=== PATIENT | female | born 1965 | race Caucasian/White ===

== ENCOUNTER → 2020-06-21 | Outpatient (CLI) | payer BC ==
--- NOTE | 2020-06-21 12:27 | P.GSHP ---
History of Present Illness H&P Date: 06/21/20 Chief Complaint: abnormal left breast mammogram Ofelia is a 55 year old white female who had a mammographic abnormality noted in the left breast. She had a bilateral mammogram performed on 220 1. This revealed a new architectural distortion in the anterior upper left mediolateral oblique view. It appears to be in the midportion of the breast by tomography. Discrete correspondence in the craniocaudal view was not evident. Compression views were obtained. This area did appear to persist on the compression mediolateral oblique view. Ultrasound of the left breast was then performed. Ultrasound of the left breast revealed most likely benign findings BIRADS 3 stereotactic core biopsy of the left breast was recommended no discrete finding on ultrasound was noted to correlate with the mammographic change. Several small lymph nodes were noted in the left axillary region. These were not felt to be suspicious. She does not feel any lumps masses or nodules in either breast. She is not complaining of any nipple discharge or skin changes. She is not complaining of any trauma or infection in her breast. Caffeine:1 1/2 cups coffee/day/ green tea in afternoon nicotine: stopped 3 months ago, used to smoke 1/PPD for 5 years chocolate: weekly hormones: none Family History: father: colon cancer, prostate cancer paternal grandmother: ovarian cancer Hormonal History: menarche: 11 1/2 M2, breast fed:yes, age at first : 23 menopause: 49 hormones: none Surgical history: Ovarian cyst removed Tubal ligation Bilateral groin hernia Rhinoplasty Tonsillectomy Oral surgery with some teeth Cataract surgery double corneal transplant conization Medical History: Turetts syndrome double vision Social History: smoke: stopped alcohol: stopped Apr 2020, used to drink daily drugs: Occasional marijuana - Constitutional Constitutional: Denies chills, Denies fever - EENT Comment: double vision Eyes: bilateral as per HPI Ears: deny: decreased hearing, tinnitus Ears, nose, mouth and throat: Denies headache, Denies sore throat - Breasts Breasts: bilateral: as per HPI - Cardiovascular Cardiovascular: Denies chest pain, Denies shortness of breath - Respiratory Comment: former smoker - Gastrointestinal Gastrointestinal: Denies abdominal pain, Denies diarrhea, Denies nausea, Denies vomiting - Genitourinary (Female) Genitourinary: Denies dysuria, Denies hematuria - Menstruation Menstruation: Reports postmenopausal - Musculoskeletal Comment: arthritis, fibromyalgia - Integumentary Integumentary: Denies pruritus, Denies rash - Neurological Comment: osito Neurological: Denies numbness, Denies weakness - Psychiatric Psychiatric: Denies anxiety, Denies depression - Endocrine Endocrine: Denies fatigue, Denies weight change - Hematologic/Lymphatic Comment: none - Allergic/Immunologic Allergic/Immunologic: Reports as per HPI, Reports seasonal allergies Past Medical History Additional Past Medical History / Comment(s): Tourettes syndrome dx age 6. 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 Corneal transplant, bilat. Rhinoplasty,. cervical leep, ovarian cystectomy, hernia repair, dilatation and curettage x2. Additional Past Anesthesia/Blood Transfusion Reaction / Comment(s): Hard time waking up Past Psychological History: No Psychological Hx Reported Smoking Status: Former smoker Additional Past Alcohol Use History / Comment(s): quit smoking 2020 Past Drug Use History: Marijuana Additional Drug Use History / Comment(s): recreational marijuana for tourettes Medications and Allergies Home Medications Medication Instructions Recorded Confirmed Type Fluorometholone 0.1% Ophth Holley 1 drops RIGHT EYE DAILY 06/13/20 06/13/20 History [Fml] Prednisolone Sod pH/Bromfenac 1 drop BOTH EYES DAILY 06/13/20 06/13/20 History [Prednisolone pH 1%-Brom 0.075%] Allergies Allergy/AdvReac Type Severity Reaction Status Date / Time Beta-Blockers Allergy Anaphylaxis Verified 06/13/20 12:43 (Beta-Adrenergic Bloc acetaminophen [From Vicodin] AdvReac Unknown Verified 06/13/20 12:43 erythromycin base AdvReac Nausea & Verified 06/13/20 12:43 Vomiting hydrocodone [From Vicodin] AdvReac Unknown Verified 06/13/20 12:43 tetracycline AdvReac Unknown Verified 06/13/20 12:43 Surgical - Exam BMI 25 - General well developed, well nourished, no distress - Eyes normal ocular movement - ENT normal nares, no hearing loss - Neck no masses, trachea midline - Respiratory normal expansion, normal respiratory effort, clear to auscultation - Cardiovascular Rhythm: regular Heart Sounds: normal: S1, S2 - Abdomen Abdomen: soft - Integumentary normal turgor, skin tattoos over back - Neurologic no disoriented, no combative - Musculoskeletal normal gait - Psychiatric oriented to time, oriented to person, oriented to place, speech is normal, memory intact breast exam: BRA: 36DD inspection bilateral grade 3 ptosis palpation: right breast: Multi-positional examination fibrocystic changes, no dominant masses or nodules of concern Right axilla: No adenopathy of concern Left breast: Multi-positional exam increased fibroglandular tissue upper outer quadrant no discrete dominant masses or nodules of concern, fibrocystic changes Left axilla: No adenopathy of concern Results Mammogram was independently reviewed, the area of concern is not well seen on a 2-D view and therefore it is felt that it 3-D stereo biopsy is most appropriate. Assessment and Plan Assessment: Impression: 1. 3-D radiographic abnormality left breast for stereotactic core biopsy 2. Fibrocystic breast changes 3. Fibromyalgia 4. Double vision Plan: 1. Reschedule stereotactic core biopsy for [facility] 3-D machine 2. Discussed lifestyle modification decreasing caffeine intake patient has recently stopped smoking 3. follow up after biopsy CC: DR. Wing
== END ==
LOC: WWCWWP 11:50
PROVIDERS: ATTEND Surgery
DX: N60.11 Diffuse cystic mastopathy of right breast (principal); N60.12 Diffuse cystic mastopathy of left breast; M79.7 Fibromyalgia; H53.2 Diplopia; Z87.891 Personal history of nicotine dependence

== ENCOUNTER 2023-03-03 10:51 | Day surgery (SDC) | payer BC ==
[2023-02-23 15:41] VITALS: BMI 24.3
[~2023-03-03 10:51] MED LIST: ATROPINE OPHTH SOLN 1% 5ML BTL OPHTHALMIC PRN; BUPIVACAINE (PF) 0.5% 4.5 ML, HYALURONIDASE, HUMAN RECOMB 150 UNIT, LIDOCAINE 2% (PF) 9... IO PRN; LACTATED RINGERS 1,000 ML IV SCH; LIDOCAINE 1% (10MG/ML) FOR IV START INTRADERMA PRN; MOXIFLOXACIN HCL 0.5% DROPS 3 ML BTL OP PRN; TETRACAINE 0.5% OPHTH (PF) DROPS 4 ML BTL OP PRN
[2023-03-03] MEDS: CYCLOPENTOLATE 1% OPHTH SOLN 2 ML BTL OP PRN ×3 (11:14→11:26)
[2023-03-03] MEDS: PHENYLEPHRINE 2.5% OPHTH DRP 2ML OP PRN ×3 (11:17→11:29)
[2023-03-03 11:38] LABS: Glucose,Whole Blood 79 mg/dL (70-110)
[2023-03-03] MEDS ORDERED: ONDANSETRON 4 MG/2 ML VIAL ONE (11:45)
[2023-03-03] MEDS ORDERED: ONDANSETRON 4 MG/2 ML VIAL IVP ONE (11:46)
[2023-03-03] MEDS ORDERED: DEXAMETHASONE SOD PHOSPHATE 4 MG/ML 1 ML VIAL IVP ONE (11:48)
[2023-03-03] MEDS ORDERED: fentaNYL (PF) 50 MCG/ML 2 ML AMP ONE (12:15)
[2023-03-03] MEDS ORDERED: MIDAZOLAM 2 MG/2 ML VIAL ONE (12:15)
[2023-03-03] MEDS ORDERED: PROPOFOL 10 MG/ML 20 ML VIAL IV ONE (12:15)
[2023-03-03] MEDS ORDERED: LIDOCAINE 1% INJ 10MG/ML (20 ML MDV) ONE (12:15)
[2023-03-03] MEDS ORDERED: EPINEPHrine (PF) 0.3 ML in BALANCED SALT IRRIG SOLN COMB2 500 ML IRRIGATION ONE (12:40)
[2023-03-03] MEDS ORDERED: LIDOCAINE 1% (PF) 10MG/ML VIAL MISCELLANE ONE (12:40)
[2023-03-03] MEDS ORDERED: BALANCED SALT IRRIG SOLN COMB2 15 ML IRRIG.SOLN INTRAOCULA ONE (12:40)
[2023-03-03] MEDS ORDERED: HYALURONATE SODIUM INTRAOCULAR 1 EACH SYRINGE (12MG/ML) INTRAOCULA ONE (12:40)
[2023-03-03] MEDS ORDERED: TRYPAN BLUE 0.06% SYRINGE 0.5 ML SYRINGE INTRAOCULA ONE (12:44)
[2023-03-03] MEDS ORDERED: ACETYLCHOLINE CHLORIDE 10 MG/ML 2 ML KIT INTRAOCULA ONE (12:44)
--- NOTE | 2023-03-03 13:52 | P.OP ---
Date of Procedure: 03/03/23 Preoperative Diagnosis: NS & CS & endothelial failure Postoperative Diagnosis: same Procedure(s) Performed: PIOL & DMEK (triple procedure) OD Implants: [id number] 17.50 Anesthesia: MAC Surgeon: Chris Perry Pathology: none sent Condition: stable Disposition: same day Indications for Procedure: blurry vision & post PKP endothelial failure Operative Findings: no complications
[2023-03-03 14:13] VITALS: TEMP 97.8
[2023-03-03] MEDS ORDERED: KETOROLAC 15 MG/ML 1 ML VIAL ONE (15:10)
[2023-03-03 15:44] VITALS: BP 134/74; RESP 14
[2023-03-03 15:45] VITALS: PULSE 66
[2023-03-04] MEDS ORDERED: TIMOLOL 0.5% OPHTH DROPS 5 ML BTL OP PRN (06:00)
--- NOTE | 2023-03-04 08:01 | OP ---
OPERATIVE REPORT DATE OF SERVICE : 03/03/2023 PROCEDURE PERFORMED: A triple procedure of the right eye. PREOPERATIVE DIAGNOSES: Nuclear sclerosis, cortical sclerosis, and endothelial failure following penetrating keratoplasty. POSTOPERATIVE DIAGNOSES: Nuclear sclerosis, cortical sclerosis, and endothelial failure following penetrating keratoplasty. ANESTHESIA: General. ESTIMATED BLOOD LOSS: None. SPECIMEN TAKEN: Transport media as well as sample tissue submitted for microbiologic culture and sensitivity. 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 She is now requesting clearer vision with the following procedure. DESCRIPTION OF PROCEDURE: After obtaining the appropriate consent, the patient was brought to the operating room. There she was placed under cardiac monitoring, induced into general anesthesia and intubated. She was then prepped and draped in the usual sterile manner. She was approached from her right temporal side and at each of the diagonal quadrants, a paracentesis was placed at the corneal limbus. Amvisc was used in the anterior chamber to stabilize it. At the 9 o'clock position, a 2.5 mm keratome was used to create a self-sealing corneal flap incision. Through this opening, a cystotome was introduced to begin a continuous tear capsulorrhexis which was completed using the Utrata forceps. Hydrodissection and hydrodelineation of the lens were accomplished with balanced salt solution. Phacoemulsification of the lens utilizing phaco chop was accomplished in 10.97 seconds at 10.7% power. Additional Amvisc was then used to stabilize the capsular bag and MX [id number] 17.5 diopter posterior chamber intraocular lens was then inserted into the capsular bag without difficulty. The remaining viscoelastic was removed from in and around the intraocular lens as well as the anterior chamber. At this point, Miochol was instilled into the patient's eye to bring about pupillary miosis allowing for sufficient time for the medication affect. This was followed by Trypan Blue which was allowed to dwell in the anterior chamber for 3 minutes. This too was rinsed away with balanced salt solution. A small amount of Amvisc was then used to stabilize the anterior chamber and using a Morales Sinskey hook, the outline of the central area within the previous corneal transplant was scored and using a Descemet membrane stripper, the endothelium was then removed from the underside of the previous corneal transplant. The temporal incision was checked for sizing of the Velazquez tube, similar to the transport device used for the tissue. A small piece of Weck-Marylu sponge was placed on the patient's cornea and the light was turned off and attention was directed to the back table where the transplant tissue identified as [id number] cornea and Optisol GS, right, this was brought to the back table and the tissue as well as the introduction device was placed to the Bebo dish with balanced salt solution. A small syringe was placed on the correct opening and the tissue was checked for proper movement within the Velazquez tube it was transported in. This was then brought back to the patient's eye. The Weck-Marylu sponge was removed and the tissue was deposited within the anterior chamber ensuring that it stayed within the chamber of the eye. A single 10-0 nylon suture was used to secure the temporal incision in an X fashion, controlling the amount of fluid in the anterior chamber and the depth, the Descemet membrane was gently unscrolled using various corneal tapping techniques and was positioned centrally within the previous corneal transplant. A small amount of air was used to confirm placement and facilitated positioning against the cornea. Once this was confirmed, SF6 at 20% concentration was then injected through a 30-gauge needle into the anterior chamber of the eye to bully the tissue against the underside of the cornea for approximately 20 minutes. Once sufficient time had passed, the sulfur hexafluoride gas was reduced to approximately 50% and balanced salt solution was used to deepen the anterior chamber. At this stage, the patient received 1 drop of 0.5% timolol followed by 2 drops of moxifloxacin as well as 2 drops of 1% atropine. She was shielded. She was extubated within the operating room without any difficulties and was returned to phase 1 recovery from her general anesthesia. She remained supine for approximately the next hour and was once again then examined bedside with a slit lamp to confirm that the Descemet membrane was in proper position and that there was sufficient depth of the anterior chamber and the appropriate amount of gas remaining in the anterior chamber of the eye. At this stage, she was cleared for discharge. There were no difficulties encountered during the procedure or anesthesia, and she was discharged home in good condition. MMODL / IJN: [id number] /
== END 2023-03-03 15:56 | disposition home or self-care (01) ==
LOC: OR 10:51
PROVIDERS: ATTEND Ophthalmology
DX: T86.8411 Corneal transplant failure, right eye (principal); H25.11 Age-related nuclear cataract, right eye; Z88.1 Allergy status to other antibiotic agents; Z88.5 Allergy status to narcotic agent; Z88.6 Allergy status to analgesic agent; Z88.8 Allergy status to other drugs, medicaments and biological substances; Z88.9 Allergy status to unspecified drugs, medicaments and biological substances; Z79.899 Other long term (current) drug therapy; Z98.890 Other specified postprocedural states
CPT/HCPCS: 87070; 87205; 87075; 87102; 65730; 66984; V2785; C1780; J2250; J1100; J2405; J0171; J2001 ×2; J3010; J1885; J2704; 87116; 87206

== ENCOUNTER 2023-06-03 19:36 | Emergency (ER) | payer BC ==
--- NOTE | 2023-06-03 20:00 | ED ---
General Adult HPI - General Chief complaint: Head Injury Stated complaint: Fall-head injury Time Seen by Provider: 06/03/23 19:59 Source: patient Mode of arrival: ambulatory Limitations: no limitations - History of Present Illness Initial comments: 58-year-old female presenting with the chief complaint of fall. States that she tripped yesterday and fell forward onto the carpeted floor. She did hit her head. No LOC. No nausea or vomiting. No blood thinners. Sent from an urgent care for a CT. No other injuries at this time. No other complaints. - Related Data Home Medications Medication Instructions Recorded Confirmed Fluorometholone 0.1% Ophth Holley 1 drops RIGHT EYE DAILY 06/13/20 03/03/23 [Fml] Prednisolone Sod pH/Bromfenac 1 drop LEFT EYE DAILY 06/13/20 03/03/23 [Prednisolone pH 1%-Brom 0.075%] Levofloxacin [Levaquin] 750 mg PO DAILY 02/23/23 03/03/23 methylPREDNISolone [Medrol Dose 0 mg PO DIRECTED 02/23/23 03/03/23 Pack] Allergies Allergy/AdvReac Type Severity Reaction Status Date / Time azithromycin Allergy Nausea & Verified 06/03/23 19:53 Vomiting Beta-Blockers Allergy Anaphylaxis Verified 06/03/23 19:53 (Beta-Adrenergic Bloc acetaminophen [From Vicodin] AdvReac Unknown Verified 06/03/23 19:53 alprazolam [From Xanax] AdvReac HEADACHE Verified 06/03/23 19:53 erythromycin base AdvReac Nausea & Verified 06/03/23 19:53 Vomiting gabapentin AdvReac NERVE Verified 06/03/23 19:53 DAMAGE hydrocodone [From Vicodin] AdvReac INSOMNIA Verified 06/03/23 19:53 morphine AdvReac SEVERE Verified 06/03/23 19:53 HEADACHE oxycodone [From Percocet] AdvReac INSOMNIA Verified 06/03/23 19:53 tetracycline AdvReac HEADACHE Verified 06/03/23 19:53 vancomycin AdvReac Itching Verified 06/03/23 19:53 Review of Systems ROS Statement: Those systems with pertinent positive or pertinent negative responses have been documented in the HPI. ROS Other: All systems not noted in ROS Statement are negative. Past Medical History Past Medical History: Eye Disorder Additional Past Medical History / Comment(s): Tourettes syndrome dx age 6. CATARACTS. RECENT BOUT OF BRONCHITIS History of Any Multi-Drug Resistant Organisms: None Reported Past Surgical History: Hernia Repair, Joint Replacement, Tonsillectomy, Tubal Li gation Additional Past Surgical History / Comment(s): left eye cataract surgery. Corneal transplant bilat. Rhinoplasty,. cervical leep, ovarian cystectomy, hernia repair, dilatation and curettage x2. RT PERLA, KELOID INJECTIONS RT THIGH. right hip Additional Past Anesthesia/Blood Transfusion Reaction / Comment(s): Hard time waking up-ALSO MOM AND SON HAVE HARD TIME WAKING UP. HAD TO GET STERNAL RUB IN AUGUST 2022 AFTER 25 MINUTES OF TRYING TO COME OUT OF TWILIGHT SEDATION. Past Psychological History: No Psychological Hx Reported Smoking Status: Former smoker Past Alcohol Use History: None Reported Past Drug Use History: None Reported - Past Family History Mother Family Medical History: No Reported History General Exam - General Exam Comments Initial Comments: Visual Physical Exam Vital signs reviewed General: Well-appearing, nontoxic, no acute distress. Head: Normocephalic, atraumatic Eyes: PERRLA, EOMI ENT: Airway patent Chest: Nonlabored breathing Skin: No visual rash, normal skin tone Neuro: Alert and oriented 3 Musculoskeletal: No gross abnormalities Limitations: no limitations General appearance: alert, in no apparent distress Head exam: Present: atraumatic, normocephalic, other (No battles signs or raccoons eyes) Eye exam: Present: normal appearance Neck exam: Present: normal inspection Respiratory exam: Present: normal lung sounds bilaterally Cardiovascular Exam: Present: regular rate, normal rhythm GI/Abdominal exam: Present: soft Extremities exam: Present: normal inspection Neurological exam: Present: alert, oriented X3 Skin exam: Present: warm, dry Course Vital Signs 06/03/23 19:53 Temperature 98.8 F Pulse Rate 87 Respiratory 16 Rate Blood Pressure 179/92 O2 Sat by Pulse 99 Oximetry Medical Decision Making - Medical Decision Making Was pt. sent in by a medical professional or institution (, PA, [employer]IC, urgent care, hospital, or group home...) When possible be specific @ -Urgent Care Did you speak to anyone other than the patient for history (EMS, parent, family, police, friend...)? What history was obtained from this source @ -No Did you review nursing and triage notes (agree or disagree)? Why? @ -I reviewed and agree with nursing and triage notes Were old charts reviewed (outside hosp., previous admission, EMS record, old EKG, old radiological studies, urgent care reports/EKG's, group home records)? Report findings @ -No old charts were reviewed Differential Diagnosis (chest pain, altered mental status, abdominal pain women, abdominal pain men, vaginal bleeding, weakness, fever, dyspnea, syncope, headach e, dizziness, GI bleed, back pain, seizure, CVA, palpatations, mental health, musculoskeletal)? @ -Differential Headache: Migraine, tension, cluster, carbon monoxide, central venous thrombosis, pension karma temporal arteritis, acute closure glaucoma, intercranial hemorrhage, mastoiditis, sinusitis, head injury, this is not meant to be an all-inclusive list. EKG interpreted by me (3pts min.). @ -None X-rays interpreted by me (1pt min.). @ -None done CT interpreted by me (1pt min.). @ -CT brain and cervical spine interpreted by me shows no evidence of acute findings. U/S interpreted by me (1pt. min.). @ -None done What testing was considered but not performed or refused? (CT, X-rays, U/S, labs)? Why? @ -None What meds were considered but not given or refused? Why? @ -None Did you discuss the management of the patient with other professionals (professionals i.e. , PA, [employer]CH[employer]IC, lab, RT, psych nurse, child welfare social worker, welt rander, te acher, armored vehicle officer, rn case manager)? Give summary @ -No Was smoking cessation discussed for >3mins.? @ -No Was critical care preformed (if so, how long)? @ -No Were there social determinants of health that impacted care today? How? (Homelessness, low income, unemployed, alcoholism, drug addiction, transportation, low edu. Level, literacy, decrease access to med. care, correction, rehab)? @ -No Was there de-escalation of care discussed even if they declined (Discuss DNR or withdrawal of care, Hospice)? DNR status @ -No What co-morbidities impacted this encounter? (DM, HTN, Smoking, COPD, CAD, Cancer, CVA, ARF, Chemo, Hep., AIDS, mental health diagnosis, sleep apnea, morbid obesity)? @ -None Was patient admitted / discharged? Hospital course, mention meds given and rou te, prescriptions, significant lab abnormalities, going to OR and other pertinent info. @ -Discharge 58-year-old female from an urgent care secondary to mechanical fall last night where patient fell forward onto the carpeted floor, hitting her head. No LOC. No nausea or vomiting. No blood thinner use. CT brain and cervical spine showed no evidence of acute finding. No other injuries at this time. Patient discharged home in stable condition. Discussed return precautions with patient who verbalizes agreement. Undiagnosed new problem with uncertain prognosis? @ -No Drug Therapy requiring intensive monitoring for toxicity (Heparin, Nitro, Insulin, Cardizem)? @ -No Were any procedures done? @ -No Diagnosis/symptom? @ -S/p mechanical fall, head injury Acute, or Chronic, or Acute on Chronic? @ -Acute Uncomplicated (without systemic symptoms) or Complicated (systemic symptoms)? @ -Uncomplicated Side effects of treatment? @ -No Exacerbation, Progression, or Severe Exacerbation? @ -No Poses a threat to life or bodily function? How? (Chest pain, [place], [place], pneumonia, PE, COPD, DKA, ARF, appy, cholecystitis, CVA, Diverticulitis, Homicidal, Suicidal, threat to staff... and all critical care pts) @ -No Disposition Clinical Impression: Head injury Disposition: HOME SELF-CARE Condition: Good Additional Instructions: Please return to the Emergency Department if symptoms worsen or any other concerns. Please follow up with your PCP. Is patient prescribed a controlled substance at d/c from ED?: No Referrals: Terrell Wing MD [Primary Care Provider] - 1-2 days Time of Disposition: 22:20
[2023-06-03 20:25] VITALS: RESP 16
--- NOTE | 2023-06-03 21:09 | CT ---
EXAMINATION TYPE: CT brain gus wo con DATE OF EXAM: 06/03/2023 COMPARISON: None HISTORY: fall on thinners. history of parkinsons. CT DLP: 1385.8 mGycm, Automated exposure control for dose reduction was used. CONTRAST: None CT of the brain is performed utilizing 3 mm thick sections through the posterior fossa and 3 mm thick sections through the remaining calvarium. Study is performed within 24 hours of arrival to the hospital. No abnormal hyperdensity is present to suggest an acute intracranial hemorrhage. No mass lesion is evident. No acute infarcts are evident. Ventricles and sulci are appropriate for the patient age. Paranasal sinuses and mastoid air cells within the [id number] are clear. IMPRESSIONS: 1. No acute intracranial process. Follow-up MRI can be performed as clinically indicated. CT cervical spine. COMPARISON: None CT of the cervical spine is performed in the axial plane at 2 mm thick sections. Reconstructed image s in the coronal, and sagittal plane are reviewed on the computer. Anterior vertebral body spurring is present C4-C7. Large spurs are present C5 and C6. No posterior wa ll displacement is evident. Disc heights appear preserved. No acute fractures are evident. Vertebral body alignment is normal. Vertebral body heights are preserved. No spinal canal stenosis is evident. Right foraminal narrowing is present at C2-3. Right foraminal stenosis present C3-4. Old right 3 and 4 posterior rib fractures are noted. No pneumothorax is evident. IMPRESSION: 1. No acute osseous abnormality cervical spine. 2. Degenerative changes discussed above. 3. 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
[2023-06-03 22:54] VITALS: BP 130/84; PULSE 88; TEMP 98.4
== END 2023-06-03 22:49 | disposition home or self-care (01) ==
LOC: EC 19:36
DX: S09.90XA Unspecified injury of head, initial encounter (principal); Z87.891 Personal history of nicotine dependence; Z88.6 Allergy status to analgesic agent; Z88.5 Allergy status to narcotic agent; Z88.8 Allergy status to other drugs, medicaments and biological substances; W01.0XXA Fall on same level from slipping, tripping and stumbling without subsequent striking against object, initial encounter
CPT/HCPCS: 70450; 72125; 99283

== ENCOUNTER 2024-09-14 15:32 | Observation (INO) | payer BC ==
--- NOTE | 2024-09-14 16:35 | ED ---
Abdominal Pain HPI - General Chief Complaint: Abdominal Pain Stated Complaint: Abd Pain Time Seen by Provider: 09/14/24 15:35 Source: patient Mode of arrival: ambulatory Limitations: physical limitation - History of Present Illness Initial Comments: 59-year-old female with past medical history of keratoconus who presents to the emergency department reporting right lower quadrant pain. States that she had periumbilical pain which now goes down to her right lower quadrant which has been going on for the past couple of days. She also has a decreased appetite. No nausea or vomiting. She does admit to constipation. She denies any fevers. Has had previous hernia surgery. Patient is concerned for appendicitis. Grades her pain as 8 out of 10 but does not want anything for pain. No other alleviating, precipitating or modifying factors - Related Data Home Medications Medication Instructions Recorded Confirmed Fluorometholone 0.1% Ophth Holley 1 drops RIGHT EYE DAILY 06/13/20 03/03/23 [Fml] Prednisolone Sod pH/Bromfenac 1 drop LEFT EYE DAILY 06/13/20 03/03/23 [Prednisolone pH 1%-Brom 0.075%] Levofloxacin [Levaquin] 750 mg PO DAILY 02/23/23 03/03/23 methylPREDNISolone [Medrol Dose 0 mg PO DIRECTED 02/23/23 03/03/23 Pack] Allergies Allergy/AdvReac Type Severity Reaction Status Date / Time azithromycin Allergy Nausea & Verified 09/14/24 15:34 Vomiting Beta-Blockers Allergy Anaphylaxis Verified 09/14/24 15:34 (Beta-Adrenergic Bloc acetaminophen [From Vicodin] AdvReac Unknown Verified 09/14/24 15:34 alprazolam [From Xanax] AdvReac HEADACHE Verified 09/14/24 15:34 erythromycin base AdvReac Nausea & Verified 09/14/24 15:34 Vomiting gabapentin AdvReac NERVE Verified 09/14/24 15:34 DAMAGE hydrocodone [From Vicodin] AdvReac INSOMNIA Verified 09/14/24 15:34 morphine AdvReac SEVERE Verified 09/14/24 15:34 HEADACHE oxycodone [From Percocet] AdvReac INSOMNIA Verified 09/14/24 15:34 tetracycline AdvReac HEADACHE Verified 09/14/24 15:34 vancomycin AdvReac Itching Verified 09/14/24 15:34 Review of Systems ROS Statement: Those systems with pertinent positive or pertinent negative responses have been documented in the HPI. ROS Other: All systems not noted in ROS Statement are negative. Past Medical History Past Medical History: Eye Disorder Additional Past Medical History / Comment(s): Tourettes syndrome dx age 6. CATARACTS. RECENT BOUT OF BRONCHITIS History of Any Multi-Drug Resistant Organisms: None Reported Past Surgical History: Hernia Repair, Joint Replacement, Tonsillectomy, Tubal Ligation Additional Past Surgical History / Comment(s): left eye cataract surgery. Corneal transplant bilat. Rhinoplasty,. cervical leep, ovarian cystectomy, her thanh repair, dilatation and curettage x2. RT PERLA, KELOID INJECTIONS RT THIGH. right hip Additional Past Anesthesia/Blood Transfusion Reaction / Comment(s): Hard time waking up-ALSO MOM AND SON HAVE HARD TIME WAKING UP. HAD TO GET STERNAL RUB IN AUGUST 2022 AFTER 25 MINUTES OF TRYING TO COME OUT OF TWILIGHT SEDATION. Past Psychological History: No Psychological Hx Reported Smoking Status: Former smoker Past Alcohol Use History: None Reported Past Drug Use History: None Reported - Past Family History Mother Family Medical History: No Reported History General Exam Limitations: physical limitation General appearance: alert, in no apparent distress Head exam: Present: atraumatic, normocephalic, normal inspection Eye exam: Present: normal appearance, PERRL, EOMI. Absent: scleral icterus, conjunctival injection, periorbital swelling ENT exam: Present: normal exam, mucous membranes moist Neck exam: Present: normal inspection. Absent: tenderness, meningismus, lymphadenopathy Respiratory exam: Present: normal lung sounds bilaterally. Absent: respiratory distress, wheezes, rales, rhonchi, stridor Cardiovascular Exam: Present: regular rate, normal rhythm, normal heart sounds. Absent: systolic murmur, diastolic murmur, rubs, gallop, clicks GI/Abdominal exam: Present: soft, tenderness (Right lower quadrant), normal bowel sounds. Absent: distended, guarding, rebound, rigid Extremities exam: Present: normal inspection, full ROM, normal capillary refill. Absent: tenderness, pedal edema, joint swelling, calf tenderness Back exam: Present: normal inspection Neurological exam: Present: alert, oriented X3, CN II-XII intact Psychiatric exam: Present: normal affect, normal mood Skin exam: Present: warm, dry, intact, normal color. Absent: rash Course Vital Signs 09/14/24 09/14/24 15:34 22:20 Temperature 98.4 F 98.7 F Pulse Rate 80 80 Respiratory 16 16 Rate Blood Pressure 134/80 148/87 O2 Sat by Pulse 100 98 Oximetry Medical Decision Making - Lab Data Result diagrams: 09/14/24 16:35 09/14/24 16:35 Lab Results 09/14/24 09/14/24 09/14/24 Range/Units 16:35 16:35 16:35 WBC 8.92 (4.50-10.00) 10*3/uL RBC 4.00 L (4.10-5.20) 10*6/uL Hgb 13.2 (12.0-15.0) g/dL Hct 37.9 (37.2-46.3) % MCV 94.8 (80.0-97.0) fL MCH 33.0 H (27.0-32.0) pg MCHC 34.8 (32.0-37.0) g/dL Plt Count 309 (140-440) 10*3/uL MPV 9.7 (9.5-12.2) fL Immature Gran % (Auto) 0.1 % Neutrophils % 51.1 % Lymphocytes % 38.8 % Monocytes % 7.7 % Eosinophils % 1.6 % Basophils % 0.7 % Immature Gran # 0.01 (0.00-0.04) 10*3/uL Neutrophils # 4.56 (1.80-7.70) 10*3/uL Lymphocytes # 3.46 (0.90-5.00) 10*3/uL Monocytes # 0.69 (0.20-1.00) 10*3/uL Eosinophils # 0.14 (0.04-0.35) 10*3/uL Basophils # 0.06 (0.00-0.10) 10*3/uL Sodium 141 (137-145) mmol/L Potassium 5.1 (3.5-5.1) mmol/L Chloride 104 (98-107) mmol/L Carbon Dioxide 26 (22-30) mmol/L Anion Gap 11 mmol/L BUN 17 (7-17) mg/dL Creatinine 0.67 (0.52-1.04) mg/dL Est GFR (CKD-EPI)AfAm >90 (>60 ml/min/1.73 sqM) Est GFR (CKD-EPI)NonAf >90 (>60 ml/min/1.73 sqM) Glucose 91 (74-99) mg/dL Plasma Lactic Acid Red (0.7-2.0) mmol/L Calcium 10.3 H (8.4-10.2) mg/dL Total Bilirubin 0.7 (0.2-1.3) mg/dL AST 35 (14-36) U/L ALT 20 (4-34) U/L Alkaline Phosphatase 58 (38-126) U/L Total Protein 8.4 H (6.3-8.2) g/dL Albumin 5.3 H (3.5-5.0) g/dL Lipase 152 (23-300) U/L Urine Color Colorless Urine Appearance Clear (Clear) Urine pH 5.5 (5.0-8.0) Ur Specific [place] 1.004 (1.001-1.035) Urine Protein Negative (Negative) Urine Glucose (UA) Negative (Negative) Urine Ketones Negative (Negative) Urine Blood Negative (Negative) Urine Nitrite Negative (Negative) Urine Bilirubin Negative (Negative) Urine Urobilinogen <2.0 (<2.0) mg/dL Ur Leukocyte Esterase Negative (Negative) 09/14/24 Range/Units 16:35 WBC (4.50-10.00) 10*3/uL RBC (4.10-5.20) 10*6/uL Hgb (12.0-15.0) g/dL Hct (37.2-46.3) % MCV (80.0-97.0) fL MCH (27.0-32.0) pg MCHC (32.0-37.0) g/dL Plt Count (140-440) 10*3/uL MPV (9.5-12.2) fL Immature Gran % (Auto) % Neutrophils % % Lymphocytes % % Monocytes % % Eosinophils % % Basophils % % Immature Gran # (0.00-0.04) 10*3/uL Neutrophils # (1.80-7.70) 10*3/uL Lymphocytes # (0.90-5.00) 10*3/uL Monocytes # (0.20-1.00) 10*3/uL Eosinophils # (0.04-0.35) 10*3/uL Basophils # (0.00-0.10) 10*3/uL Sodium (137-145) mmol/L Potassium (3.5-5.1) mmol/L Chloride (98-107) mmol/L Carbon Dioxide (22-30) mmol/L Anion Gap mmol/L BUN (7-17) mg/dL Creatinine (0.52-1.04) mg/dL Est GFR (CKD-EPI)AfAm (>60 ml/min/1.73 sqM) Est GFR (CKD-EPI)NonAf (>60 ml/min/1.73 sqM) Glucose (74-99) mg/dL Plasma Lactic Acid Red 1.5 (0.7-2.0) mmol/L Calcium (8.4-10.2) mg/dL Total Bilirubin (0.2-1.3) mg/dL AST (14-36) U/L ALT (4-34) U/L Alkaline Phosphatase (38-126) U/L Total Protein (6.3-8.2) g/dL Albumin (3.5-5.0) g/dL Lipase (23-300) U/L Urine Color Urine Appearance (Clear) Urine pH (5.0-8.0) Ur Specific [place] (1.001-1.035) Urine Protein (Negative) Urine Glucose (UA) (Negative) Urine Ketones (Negative) Urine Blood (Negative) Urine Nitrite (Negative) Urine Bilirubin (Negative) Urine Urobilinogen (<2.0) mg/dL Ur Leukocyte Esterase (Negative) Disposition Clinical Impression: RLQ abdominal pain, Redundant colon Disposition: ADMITTED IP TO THIS [facility] Condition: Stable Is patient prescribed a controlled substance at d/c from ED?: No Referrals: Terrell Wing MD [Primary Care Provider] - 1-2 days Time of Disposition: 22:34 Decision to Admit Reason: Admit from EC Decision Date: 09/14/24 Decision Time: 22:34
[2024-09-14 16:59] LABS: Basophils # (A) 0.06 10*3/uL (0.00-0.10); Basophils % (A) 0.7 %; Eosinophils # (A) 0.14 10*3/uL (0.04-0.35); Eosinophils % (A) 1.6 %; HCT 37.9 % (37.2-46.3); HGB 13.2 g/dL (12.0-15.0); Lymphocytes # (A) 3.46 10*3/uL (0.90-5.00); Lymphocytes % (A) 38.8 %; MCHC 34.8 g/dL (32.0-37.0); MCV 94.8 fL (80.0-97.0); Mean Platelet Volume 9.7 fL (9.5-12.2); Monocytes # (A) 0.69 10*3/uL (0.20-1.00); Monocytes % (A) 7.7 %; Neutrophils # (A) 4.56 10*3/uL (1.80-7.70); Neutrophils % (A) 51.1 %; Platelet Count 309 10*3/uL (140-440); RDW 13.2 % (11.5-14.5); WBC 8.92 10*3/uL (4.50-10.00)
[2024-09-14 17:07] LABS: Appearance,Urine Clear (Clear); Bilirubin,Urine Negative (Negative); Blood,Urine Negative (Negative); Color,Urine Colorless; Glucose,Urine (UA) Negative (Negative); Ketones,Urine Negative (Negative); Leukocyte Esterase,Urine Negative (Negative); Nitrite,Urine Negative (Negative); PH, Urine 5.5 (5.0-8.0); Protein,Urine Negative (Negative); Specific Gravity,Urine 1.004 (1.001-1.035); Urobilinogen,Urine <2.0 mg/dL (<2.0)
[2024-09-14 17:15] LABS: ALT 20 U/L (4-34); African American GFR (CKD) >90 (>60 ml/min/1.73 sqM); Anion Gap 11 mmol/L; Blood Urea Nitrogen 17 mg/dL (7-17); Calcium 10.3 mg/dL (8.4-10.2); Carbon Dioxide 26 mmol/L (22-30); Chloride 104 mmol/L (98-107); Glucose 91 mg/dL (74-99); Lipase 152 U/L (23-300); Non-African American GFR(CKD) >90 (>60 ml/min/1.73 sqM); Sodium 141 mmol/L (137-145)
[2024-09-14 17:20] LABS: AST 35 U/L (14-36); Albumin 5.3 g/dL (3.5-5.0); Alkaline Phosphatase 58 U/L (38-126); Potassium 5.1 mmol/L (3.5-5.1); Total Bilirubin 0.7 mg/dL (0.2-1.3); Total Protein 8.4 g/dL (6.3-8.2)
[2024-09-14] MEDS: SODIUM CHLORIDE 0.9% 1,000 ML IV ONE (17:24)
--- NOTE | 2024-09-14 18:53 | CT ---
EXAMINATION TYPE: CT abdomen pelvis w con DATE OF EXAM: 09/14/2024 6:23 PM COMPARISON: None CLINICAL INDICATION: Female, 59 years old with history of abdominal pain; RLQ pain. TECHNIQUE: Axial CT abdomen pelvis w con;Sagittal and coronal reformats were created on a separate w orkstation. Contrast used:100 ml mL of Isovue 300 with IV Contrast, (none if empty) Oral contrast used: without Oral Contrast (none if empty) CT DLP: 588.3 mGycm, Automated exposure control for dose reduction was used. FINDINGS: LOWER CHEST: Unremarkable ABDOMEN LIVER: Unremarkable GALLBLADDER AND BILE DUCTS: Unremarkable. PANCREAS: Unremarkable. SPLEEN: Unremarkable. ADRENAL GLANDS: Unremarkable. KIDNEYS AND URETERS: No evidence of hydronephrosis or obstructing renal calculus. The ureters are unr emarkable. PELVIS BLADDER: No evidence for wall thickening or mass given limitations of exam. REPRODUCTIVE: Unremarkable. ABDOMEN & PELVIS STOMACH AND BOWEL: Redundant colon throughout the abdomen. Moderate to large amount stool throughout the colon. There is twisting of the cecum series 202 image 39 where the terminal ileum comes in. The appendix is visualized in this region: Normal. The appendix is normal. No evidence of bowel obstructi on. Scattered colonic diverticula. PERITONEUM/RETROPERITONEUM: No evidence of pneumoperitoneum or free fluid. VASCULATURE: No evidence of aortic aneurysm. MUSCULOSKELETAL: No acute osseous abnormalities, right hip arthroplasty limits evaluation the pelvis. Hardware appears intact. LYMPH NODES: No gross evidence for lymphadenopathy. SOFT TISSUE/ABDOMINAL WALL: Unremarkable IMPRESSION: 1. Redundant colon with twisting of the cecum medially. Correlate for cecal bascule. No other acute processes definitively visualized in the right lower quadrant. 2. The appendix is normal. 3. Poor visualization of the distal right ureter due to streak artifact. Few calcifications are like ly outside the ureter. There is no evidence for hydronephrosis. [facility], , 09/14/2024 6:50 PM
[2024-09-14] MEDS ORDERED: IOPAMIDOL CONTRAST (ORAL USE) VIAL PO PRN (19:39)
--- NOTE | 2024-09-14 22:08 | CT ---
EXAMINATION TYPE: CT abdomen pelvis wo con DATE OF EXAM: 09/14/2024 9:36 PM COMPARISON: CT abdomen pelvis most recent from same day CLINICAL INDICATION: Female, 59 years old with history of cecal twisting; Pt preesnts with umbical ab dominal pain radiates to the right lower quadrant, abnormal bowel movements. TECHNIQUE: Axial CT abdomen pelvis wo con;Sagittal and coronal reformats were created on a separate workstation. Contrast used: mL of , (none if empty) Oral contrast used: with Oral Contrast (none if empty) CT DLP: 395.5 mGycm, Automated exposure control for dose reduction was used. FINDINGS: LOWER CHEST: Unremarkable ABDOMEN LIVER: Unremarkable GALLBLADDER AND BILE DUCTS: Unremarkable. PANCREAS: Unremarkable. SPLEEN: Unremarkable. ADRENAL GLANDS: Unremarkable. KIDNEYS AND URETERS: No evidence of hydronephrosis or obstructing renal calculus. The ureters are unr emarkable. PELVIS BLADDER: Excreted IV contrast seen within the urinary bladder and the ureters. No evidence for wall t hickening or mass given limitations of exam. REPRODUCTIVE: Unremarkable. ABDOMEN & PELVIS STOMACH AND BOWEL: Redundant colon throughout the abdomen. Moderate to large amount stool throughout the colon. Oral contrast extends to the rectum. There remains twisting of the cecum medially where th e terminal ileum comes in no obvious obstruction identified no wall thickening is present.. The appen carole is visualized in this region. No evidence of bowel obstruction. Scattered colonic diverticula. PERITONEUM/RETROPERITONEUM: No evidence of pneumoperitoneum or free fluid. VASCULATURE: No evidence of aortic aneurysm. MUSCULOSKELETAL: No acute osseous abnormalities, right hip arthroplasty limits evaluation the pelvis. Hardware appears intact. Grade 1 anterolisthesis of L5 on S1 with bilateral spondylolysis LYMPH NODES: No gross evidence for lymphadenopathy. SOFT TISSUE/ABDOMINAL WALL: Unremarkable IMPRESSION: 1. Findings confirmed with redundant with twisting of the cecum medially. No evidence for obstructio n as contrast extends to the rectum. Findings may be of doubtful clinical significance. No other find ing to correlate patient's pain. 2. The appendix is normal. 3. The ureters are opacified, the distal right ureter is remains poorly visualized due to right hip arthroplasty streak. Few calcifications are likely outside the ureter. There is no evidence for hydro nephrosis. [facility], , 09/14/2024 10:05 PM
[2024-09-14] MEDS ORDERED: NALOXONE 0.4 MG/ML 1 ML VIAL IV PRN (22:39)
[2024-09-15] MEDS: SODIUM CHLORIDE 0.9% 1,000 ML IV SCH (00:08)
[2024-09-15 06:52] LABS: Basophils # (A) 0.07 10*3/uL (0.00-0.10); Eosinophils # (A) 0.22 10*3/uL (0.04-0.35); Eosinophils % (A) 3.2 %; HCT 35.2 % (37.2-46.3); HGB 12.1 g/dL (12.0-15.0); Lymphocytes # (A) 2.66 10*3/uL (0.90-5.00); Lymphocytes % (A) 38.3 %; MCH 32.4 pg (27.0-32.0); MCHC 34.4 g/dL (32.0-37.0); MCV 94.1 fL (80.0-97.0); Mean Platelet Volume 9.4 fL (9.5-12.2); Monocytes # (A) 0.57 10*3/uL (0.20-1.00); Monocytes % (A) 8.2 %; Neutrophils # (A) 3.41 10*3/uL (1.80-7.70); Neutrophils % (A) 49.2 %; Platelet Count 270 10*3/uL (140-440); RBC 3.74 10*6/uL (4.10-5.20); RDW 13.2 % (11.5-14.5); WBC 6.94 10*3/uL (4.50-10.00)
[2024-09-15 07:12] LABS: African American GFR (CKD) >90 (>60 ml/min/1.73 sqM); Anion Gap 7 mmol/L; Blood Urea Nitrogen 14 mg/dL (7-17); Calcium 9.7 mg/dL (8.4-10.2); Carbon Dioxide 25 mmol/L (22-30); Chloride 109 mmol/L (98-107); Glucose 97 mg/dL (74-99); Non-African American GFR(CKD) >90 (>60 ml/min/1.73 sqM); Potassium 4.5 mmol/L (3.5-5.1); Sodium 141 mmol/L (137-145)
[2024-09-15] MEDS: KETOROLAC 15 MG/ML 1 ML VIAL IVP PRN (09:42)
--- NOTE | 2024-09-15 11:37 | P.GSHP ---
History of Present Illness H&P Date: 09/15/24 CHIEF COMPLAINT: Abdominal pain HISTORY OF PRESENT ILLNESS: This is a 59-year-old female who presented with right lower quadrant abdominal pain. Patient reports that she has been dealing with diarrhea and constipation for the last several months. She reports early fullness after eating. She has been bloated. Reports a decreased appetite. She did have a small bowel movement last night after the CAT scan with contrast. But she feels that she is not fully emptying her bowels after she stools. She denies any blood in the stools. She describes the shape of the stools as small and notably looking. Her last colonoscopy was 3 years ago reported as normal. The colonoscopy prior to that had shown colon polyps. She had a CT scan abdomen pelvis with both IV and then another CAT scan with oral contrast they reported redundant colon with twisting of the cecum correlate for cecal bascule. Appendix was normal. Patient reports her pain is better after the pain medication. She has been admitted to surgical service. PAST MEDICAL HISTORY: Tourettes syndrome dx age 6. CATARACTS. RECENT BOUT OF BRONCHITIS PAST SURGICAL HISTORY: Hernia Repair, Joint Replacement, Tonsillectomy, Tubal Ligation,left eye cataract surgery. Corneal transplant bilat. Rhinoplasty,. cervical leep, ovarian cystectomy, hernia repair, dilatation and curettage x2. RT PERLA, KELOID INJECTIONS RT THIGH. right hip, MEDICATIONS: See below ALLERGIES: See below SOCIAL HISTORY: No illicit drug use. REVIEW OF SYSTEMS: CONSTITUTIONAL: Denies fever or chills. HEENT: Denies blurred vision, vision changes, or eye pain. Denies hemoptysis CARDIOVASCULAR: Denies chest pain or pressure. RESPIRATORY: No shortness of breath. GASTROINTESTINAL: See HPI for pertinent findings HEMATOLOGIC: Denies bleeding disorders. GENITOURINARY: Denies any blood in urine or increased urinary frequency. SKIN: Denies pruitis. Denies rash. PHYSICAL EXAM: VITAL SIGNS: Reviewed GENERAL: Well-developed in no acute distress. HEENT: No sclera icterus. Extraocular movements grossly intact. Moist buccal mucosa. Head is atraumatic, normocephalic. No nasal drainage. ABDOMEN: Soft. Nondistended. Tenderness palpation to the right lower quadrant. No rebound or guarding noted. NEUROLOGIC: Alert and oriented. Cranial nerves II through XII grossly intact. LABORATORY DATA: WBC 6.94 Hgb 12.1 platelets 370 Sodium is 141 potassium 4.5 creatinine 0.66 Lactic acid 1.5 IMAGING: CT scan abdomen pelvis reports redundant colon with twisting of the cecum medially. Correlate for cecal bascule. No other acute process. The appendix is normal. Poor visualization of the distal right ureter due to streak artifact. Few calcifications are likely outside the ureter. No hydronephrosis. CT scan with oral contrast confirms redundant with twisting cecum medially. No evidence for obstruction as contrast extends to the rectum. Appendix normal ASSESSMENT: 1. 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 Signing provider agrees with the documented findings, assessment, and plan of care. Past Medical History Past Medical History: Eye Disorder Additional Past Medical History / Comment(s): Tourettes syndrome dx age 6. CATARACTS. RECENT BOUT OF BRONCHITIS History of Any Multi-Drug Resistant Organisms: None Reported Past Surgical History: Hernia Repair, Joint Replacement, Tonsillectomy, Tubal Ligation Additional Past Surgical History / Comment(s): left eye cataract surgery. Corneal transplant bilat. Rhinoplasty,. cervical leep, ovarian cystectomy, hernia repair, dilatation and curettage x2. RT PERLA, KELOID INJECTIONS RT THIGH. right hip Additional Past Anesthesia/Blood Transfusion Reaction / Comment(s): Hard time waking up-ALSO MOM AND SON HAVE HARD TIME WAKING UP. HAD TO GET STERNAL RUB IN AUGUST 2022 AFTER 25 MINUTES OF TRYING TO COME OUT OF TWILIGHT SEDATION. Past Psychological History: No Psychological Hx Reported Smoking Status: Former smoker Past Alcohol Use History: None Reported Past Drug Use History: None Reported - Past Family History Mother Family Medical History: No Reported History Medications and Allergies Home Medications Medication Instructions Recorded Confirmed Type Prednisolone Sod pH/Bromfenac 1 drop BOTH EYES DAILY 06/13/20 09/15/24 History [Prednisolone pH 1%-Brom 0.075%] Allergies Allergy/AdvReac Type Severity Reaction Status Date / Time azithromycin Allergy Nausea & Verified 09/15/24 07:52 Vomiting Beta-Blockers Allergy Anaphylaxis Verified 09/15/24 07:52 (Beta-Adrenergic Bloc acetaminophen [From Vicodin] AdvReac no plain Verified 09/15/24 07:52 tylenol allergy alprazolam [From Xanax] AdvReac HEADACHE Verified 09/15/24 07:52 erythromycin base AdvReac Nausea & Verified 09/15/24 07:52 Vomiting gabapentin AdvReac NERVE Verified 09/15/24 07:52 DAMAGE hydrocodone [From Vicodin] AdvReac INSOMNIA Verified 09/15/24 07:52 morphine AdvReac SEVERE Verified 09/15/24 07:52 HEADACHE oxycodone [From Percocet] AdvReac INSOMNIA Verified 09/15/24 07:52 tetracycline AdvReac HEADACHE Verified 09/15/24 07:52 vancomycin AdvReac Itching Verified 09/15/24 07:52 Surgical - Exam Vital Signs Temp Pulse Resp BP Pulse Ox 98.4 F 80 16 134/80 100 09/14/24 15:34 09/14/24 15:34 09/14/24 15:34 09/14/24 15:34 09/14/24 15:34 Results - Labs 09/15/24 06:18 09/15/24 06:18 Abnormal Lab Results - Last 24 Hours (Table) 09/14/24 09/14/24 09/15/24 Range/Units 16:35 16:35 06:18 RBC 4.00 L 3.74 L (4.10-5.20) 10*6/uL Hct 35.2 L (37.2-46.3) % MCH 33.0 H 32.4 H (27.0-32.0) pg MPV 9.4 L (9.5-12.2) fL Chloride (98-107) mmol/L Calcium 10.3 H (8.4-10.2) mg/dL Total Protein 8.4 H (6.3-8.2) g/dL Albumin 5.3 H (3.5-5.0) g/dL 09/15/24 Range/Units 06:18 RBC (4.10-5.20) 10*6/uL Hct (37.2-46.3) % MCH (27.0-32.0) pg MPV (9.5-12.2) fL Chloride 109 H (98-107) mmol/L Calcium (8.4-10.2) mg/dL Total Protein (6.3-8.2) g/dL Albumin (3.5-5.0) g/dL Diabetes panel 09/14/24 09/15/24 Range/Units 16:35 06:18 Sodium 141 141 (137-145) mmol/L Potassium 5.1 4.5 (3.5-5.1) mmol/L Chloride 104 109 H (98-107) mmol/L Carbon Dioxide 26 25 (22-30) mmol/L BUN 17 14 (7-17) mg/dL Creatinine 0.67 0.66 (0.52-1.04) mg/dL Glucose 91 97 (74-99) mg/dL Calcium 10.3 H 9.7 (8.4-10.2) mg/dL AST 35 (14-36) U/L ALT 20 (4-34) U/L Alkaline Phosphatase 58 (38-126) U/L Total Protein 8.4 H (6.3-8.2) g/dL Albumin 5.3 H (3.5-5.0) g/dL Calcium panel 09/14/24 09/15/24 Range/Units 16:35 06:18 Calcium 10.3 H 9.7 (8.4-10.2) mg/dL Albumin 5.3 H (3.5-5.0) g/dL Pituitary panel 09/14/24 09/15/24 Range/Units 16:35 06:18 Sodium 141 141 (137-145) mmol/L Potassium 5.1 4.5 (3.5-5.1) mmol/L Chloride 104 109 H (98-107) mmol/L Carbon Dioxide 26 25 (22-30) mmol/L BUN 17 14 (7-17) mg/dL Creatinine 0.67 0.66 (0.52-1.04) mg/dL Glucose 91 97 (74-99) mg/dL Calcium 10.3 H 9.7 (8.4-10.2) mg/dL Adrenal panel 09/14/24 09/15/24 Range/Units 16:35 06:18 Sodium 141 141 (137-145) mmol/L Potassium 5.1 4.5 (3.5-5.1) mmol/L Chloride 104 109 H (98-107) mmol/L Carbon Dioxide 26 25 (22-30) mmol/L BUN 17 14 (7-17) mg/dL Creatinine 0.67 0.66 (0.52-1.04) mg/dL Glucose 91 97 (74-99) mg/dL Calcium 10.3 H 9.7 (8.4-10.2) mg/dL Total Bilirubin 0.7 (0.2-1.3) mg/dL AST 35 (14-36) U/L ALT 20 (4-34) U/L Alkaline Phosphatase 58 (38-126) U/L Total Protein 8.4 H (6.3-8.2) g/dL Albumin 5.3 H (3.5-5.0) g/dL
--- NOTE | 2024-09-15 11:42 | P.CONS ---
History of Present Illness - History of Present Illness 59-year-old female came in with right lower quadrant abdominal pain severe but m uch improved now. Patient has been having diarrhea and constipation for last few months patient feels fullness after eating. Patient also has decreased appetite denied any nausea vomiting. Patient had a CT scan of the abdomen which showed redundant colon with twisting of the cecum possibility of cecal bascule. General surgery was consulted. Patient will undergo colonoscopy today. REVIEW OF SYSTEMS: All other systems are negative except those mentioned in the HPI PHYSICAL EXAMINATION: GENERAL: The patient is alert and oriented x3, not in any acute distress. Well developed, well nourished. HEENT: Pupils are round and equally reacting to light. EOMI. No scleral icterus. No conjunctival pallor. Normocephalic, atraumatic. No pharyngeal erythema. No thyromegaly. CARDIOVASCULAR: S1 and S2 present. No murmurs, rubs, or gallops. PULMONARY: Chest is clear to auscultation, no wheezing or crackles. ABDOMEN: Soft, nontender, nondistended, normoactive bowel sounds. No palpable organomegaly. MUSCULOSKELETAL: No joint swelling or deformity. EXTREMITIES: No cyanosis, clubbing, or pedal edema. NEUROLOGICAL: Gross neurological examination did not reveal any focal deficits. SKIN: No rashes. 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 Continue with present pain management patient pain is fairly well-controlled at this time We will continue to follow the patient's no additional recommendations from medicine perspective DVT prophylaxis: As per primary service Past Medical History Past Medical History: Eye Disorder Additional Past Medical History / Comment(s): Tourettes syndrome dx age 6. CATARACTS. RECENT BOUT OF BRONCHITIS History of Any Multi-Drug Resistant Organisms: None Reported Past Surgical History: Hernia Repair, Joint Replacement, Tonsillectomy, Tubal Ligation Additional Past Surgical History / Comment(s): left eye cataract surgery. Corneal transplant bilat. Rhinoplasty,. cervical leep, ovarian cystectomy, hernia repair, dilatation and curettage x2. RT PERLA, KELOID INJECTIONS RT THIGH. right hip Additional Past Anesthesia/Blood Transfusion Reaction / Comm: Hard time waking up-ALSO MOM AND SON HAVE HARD TIME WAKING UP. HAD TO GET STERNAL RUB IN AUGUST 2022 AFTER 25 MINUTES OF TRYING TO COME OUT OF TWILIGHT SEDATION. Past Psychological History: No Psychological Hx Reported Smoking Status: Former smoker Past Alcohol Use History: None Reported Past Drug Use History: None Reported - Past Family History Mother Family Medical History: No Reported History Medications and Allergies Home Medications Medication Instructions Recorded Confirmed Type Prednisolone Sod pH/Bromfenac 1 drop BOTH EYES DAILY 06/13/20 09/15/24 History [Prednisolone pH 1%-Brom 0.075%] Allergies Allergy/AdvReac Type Severity Reaction Status Date / Time azithromycin Allergy Nausea & Verified 09/15/24 07:52 Vomiting Beta-Blockers Allergy Anaphylaxis Verified 09/15/24 07:52 (Beta-Adrenergic Bloc acetaminophen [From Vicodin] AdvReac no plain Verified 09/15/24 07:52 tylenol allergy alprazolam [From Xanax] AdvReac HEADACHE Verified 09/15/24 07:52 erythromycin base AdvReac Nausea & Verified 09/15/24 07:52 Vomiting gabapentin AdvReac NERVE Verified 09/15/24 07:52 DAMAGE hydrocodone [From Vicodin] AdvReac INSOMNIA Verified 09/15/24 07:52 morphine AdvReac SEVERE Verified 09/15/24 07:52 HEADACHE oxycodone [From Percocet] AdvReac INSOMNIA Verified 09/15/24 07:52 tetracycline AdvReac HEADACHE Verified 09/15/24 07:52 vancomycin AdvReac Itching Verified 09/15/24 07:52 Physical Exam Vitals: Vital Signs Temp Pulse Resp BP Pulse Ox 09/15/24 07:00 66 18 126/78 99 09/15/24 00:06 84 16 117/70 97 09/14/24 22:20 98.7 F 80 16 148/87 98 09/14/24 15:34 98.4 F 80 16 134/80 100 Intake and Output 09/14/24 09/15/24 09/15/24 22:59 06:59 14:59 Other: Weight 62.142 kg Results CBC & Chem 7: 09/15/24 06:18 09/15/24 06:18 Labs: Abnormal Lab Results - Last 24 Hours (Table) 09/14/24 09/14/24 09/15/24 Range/Units 16:35 16:35 06:18 RBC 4.00 L 3.74 L (4.10-5.20) 10*6/uL Hct 35.2 L (37.2-46.3) % MCH 33.0 H 32.4 H (27.0-32.0) pg MPV 9.4 L (9.5-12.2) fL Chloride (98-107) mmol/L Calcium 10.3 H (8.4-10.2) mg/dL Total Protein 8.4 H (6.3-8.2) g/dL Albumin 5.3 H (3.5-5.0) g/dL 09/15/24 Range/Units 06:18 RBC (4.10-5.20) 10*6/uL Hct (37.2-46.3) % MCH (27.0-32.0) pg MPV (9.5-12.2) fL Chloride 109 H (98-107) mmol/L Calcium (8.4-10.2) mg/dL Total Protein (6.3-8.2) g/dL Albumin (3.5-5.0) g/dL
[2024-09-15] MEDS: prednisoLONE ACETATE 1% OPHTH DROPS 5 ML BTL BOTH EYES SCH (13:48)
[2024-09-15] MEDS: KETOROLAC 0.5% OPHTH DROPS 5 ML BTL BOTH EYES SCH (13:48)
[2024-09-15] MEDS: MELATONIN 5 MG TABLET PO SCH (20:52)
[2024-09-16] MEDS: HYDROmorphone 1 MG/ML 1 ML SYRINGE IVP PRN (00:54)
[2024-09-16] MEDS: ONDANSETRON 4 MG/2 ML VIAL IVP PRN (01:48)
--- NOTE | 2024-09-16 07:14 | P.PN ---
Subjective Progress Note Date: 09/16/24 Patient has had complaints of some crampy abdominal pain. She had several episodes of vomiting last night. She is currently resting in bed comfortably. On exam vital signs appear stable. Abdomen is soft. History of cecal bascule. Patient will be observed. If she remains symptomatic she may need a right colectomy. No plans for surgery have made at this point. Objective - Vital Signs Vital signs: Vital Signs Temp 97.8 F 09/16/24 00:09 Pulse 79 09/16/24 00:09 Resp 16 09/16/24 00:09 BP 149/77 09/16/24 00:09 Pulse Ox 100 09/16/24 00:09 FiO2 Intake & Output 09/15/24 09/16/24 09/16/24 18:59 06:59 18:59 Weight 62.142 kg Other: Voiding Method Toilet Toilet # Voids 1 1 # Bowel Movements 0 - Labs CBC & Chem 7: 09/15/24 06:18 09/15/24 06:18
[2024-09-16] MEDS: ACETAMINOPHEN TAB 325 MG TAB PO PRN (13:55)
--- NOTE | 2024-09-16 15:56 | P.PN ---
Subjective 59-year-old female came in with right lower quadrant abdominal pain severe but much improved now. Patient has been having diarrhea and constipation for last few months patient feels fullness after eating. Patient also has decreased appe tite denied any nausea vomiting. Patient had a CT scan of the abdomen which showed redundant colon with twisting of the cecum possibility of cecal bascule. General surgery was consulted. Patient will undergo colonoscopy today. 09/16/2024 Patient continues to have abdominal pain patient did not tolerate opiates very well is tolerating Toradol and Tylenol very well patient has multiple side effec ts from opiates including constipation. Opiates were discontinued Toradol has been continued and Tylenol is being used for headache. The patient continues to have this abdominal pain will need a colectomy as per general surgery. REVIEW OF SYSTEMS: All other systems are negative except those mentioned in the HPI PHYSICAL EXAMINATION: GENERAL: The patient is alert and oriented x3, not in any acute distress. Well developed, well nourished. HEENT: Pupils are round and equally reacting to light. EOMI. No scleral icterus. No conjunctival pallor. Normocephalic, atraumatic. No pharyngeal erythema. No thyromegaly. CARDIOVASCULAR: S1 and S2 present. No murmurs, rubs, or gallops. PULMONARY: Chest is clear to auscultation, no wheezing or crackles. ABDOMEN: Soft, nontender, nondistended, normoactive bowel sounds. No palpable organomegaly. MUSCULOSKELETAL: No joint swelling or deformity. EXTREMITIES: No cyanosis, clubbing, or pedal edema. NEUROLOGICAL: Gross neurological examination did not reveal any focal deficits. SKIN: No rashes. 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 Continue with present pain management patient pain is fairly well-controlled at this time We will continue to follow the patient's no additional recommendations from medicine perspective DVT prophylaxis: As per primary service Objective - Vital Signs Vital signs: Vital Signs Temp 98.2 F 09/16/24 14:03 Pulse 87 09/16/24 14:03 Resp 17 09/16/24 14:03 BP 128/75 09/16/24 14:03 Pulse Ox 100 09/16/24 14:03 FiO2 Intake & Output 09/15/24 09/16/24 09/16/24 18:59 06:59 18:59 Weight 62.142 kg Other: Voiding Method Toilet Toilet Toilet # Voids 1 1 1 # Bowel Movements 0 - Labs CBC & Chem 7: 09/15/24 06:18 09/15/24 06:18
--- NOTE | 2024-09-17 09:49 | P.PN ---
Subjective Progress Note Date: 09/17/24 Patient feels slightly better. She states her right lower quadrant pain is improved. She has had a small bowel movement. Her nausea has improved as well. Objective - Vital Signs Vital signs: Vital Signs Temp 98.2 F 09/17/24 06:48 Pulse 71 09/17/24 06:48 Resp 18 09/17/24 06:48 BP 129/78 09/17/24 06:48 Pulse Ox 100 09/17/24 06:48 FiO2 Intake & Output 09/16/24 09/17/24 09/17/24 18:59 06:59 18:59 Intake Total 222 Balance 222 Weight 62.142 kg Intake: Oral 222 Other: Voiding Method Toilet Toilet Toilet # Voids 3 2 # Bowel Movements 1 1 - Labs CBC & Chem 7: 09/15/24 06:18 09/15/24 06:18 Assessment and Plan Plan: Patient will be scheduled for colonoscopy in the a.m.
[2024-09-17] MEDS: PEG 3350 (236 GM/BTL) + LYTES 4,000 ML BOTTLE PO ONE (13:08)
[2024-09-18 07:40] VITALS: BP 147/83; PULSE 59; RESP 17; TEMP 98.1
[2024-09-18 08:40] LABS: Basophils # (A) 0.05 10*3/uL (0.00-0.10); Basophils % (A) 1.2 %; Eosinophils # (A) 0.08 10*3/uL (0.04-0.35); Eosinophils % (A) 1.9 %; HCT 33.5 % (37.2-46.3); Lymphocytes # (A) 2.26 10*3/uL (0.90-5.00); Lymphocytes % (A) 52.3 %; MCH 31.3 pg (27.0-32.0); MCHC 32.8 g/dL (32.0-37.0); MCV 95.2 fL (80.0-97.0); Mean Platelet Volume 9.6 fL (9.5-12.2); Monocytes # (A) 0.63 10*3/uL (0.20-1.00); Monocytes % (A) 14.6 %; Platelet Count 264 10*3/uL (140-440); RBC 3.52 10*6/uL (4.10-5.20); RDW 13.2 % (11.5-14.5); WBC 4.32 10*3/uL (4.50-10.00)
[2024-09-18 08:52] LABS: African American GFR (CKD) >90 (>60 ml/min/1.73 sqM); Anion Gap 8 mmol/L; Blood Urea Nitrogen <2 mg/dL (7-17); Calcium 9.6 mg/dL (8.4-10.2); Carbon Dioxide 25 mmol/L (22-30); Chloride 109 mmol/L (98-107); Glucose 88 mg/dL (74-99); Non-African American GFR(CKD) >90 (>60 ml/min/1.73 sqM); Potassium 3.9 mmol/L (3.5-5.1); Sodium 142 mmol/L (137-145)
--- NOTE | 2024-09-18 11:04 | P.PN ---
Subjective Progress Note Date: 09/18/24 SURGICAL PROGRESS NOTE CHIEF COMPLAINT: Abdominal pain HISTORY OF PRESENT ILLNESS: Her pain is improving. She is scheduled for colonoscopy today. She reports her stools are clear. Denies any nausea or vomiting. Afebrile. WBC 4.32 Hgb 11 platelets 264 PHYSICAL EXAM: VITAL SIGNS: Reviewed. GENERAL: Well-developed in no acute distress. ABDOMEN: Soft. Nondistended. Nontender. NEUROLOGIC: Alert and oriented. Cranial nerves II through XII grossly intact. ASSESSMENT: 1. Cecal bascule 2. Abdominal pain PLAN: - Patient scheduled for colonoscopy today with Dr. Arias Physician Rug Inspector note has been reviewed by physician. Signing provider agrees with the documented findings, assessment, and plan of care. Objective - Vital Signs Vital signs: Vital Signs Temp 98.1 F 09/18/24 07:15 Pulse 59 L 09/18/24 07:15 Resp 17 09/18/24 07:15 BP 147/83 09/18/24 07:15 Pulse Ox 100 09/18/24 07:15 FiO2 Intake & Output 09/17/24 09/18/24 09/18/24 18:59 06:59 18:59 Intake Total 1110 Balance 1110 Intake: Oral 1110 Other: Voiding Method Toilet Toilet # Voids 2 2 # Bowel Movements 5 - Labs CBC & Chem 7: 09/18/24 08:13 09/18/24 08:10 Labs: Abnormal Lab Results - Last 24 Hours (Table) 09/18/24 09/18/24 Range/Units 08:10 08:13 WBC 4.32 L (4.50-10.00) 10*3/uL RBC 3.52 L (4.10-5.20) 10*6/uL Hgb 11.0 L (12.0-15.0) g/dL Hct 33.5 L (37.2-46.3) % Neutrophils # 1.30 L (1.80-7.70) 10*3/uL Chloride 109 H (98-107) mmol/L BUN <2 L (7-17) mg/dL
[2024-09-18] MEDS ORDERED: PROPOFOL 10 MG/ML 20 ML VIAL IV ONE (11:56)
[2024-09-18] MEDS: IV FLUID CONTINUATION 950 ML IV ONE (12:01)
--- NOTE | 2024-09-18 12:23 | P.OP ---
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 She received IV sedation. Digital rectal exam was performed. This revealed no abnormalities. The flexible colonoscope was then placed patient anus passed throughout the colon. The patient did very redundant colon. The area of the cecal bascule was visualized. The cecum could not be entered due to twisting of the colon. This point scope withdrawn. The visualized right colon and transverse colon appeared normal except for redundancy of the colon. The descending and sigmoid colon was redundant as well. The scope was Ruback into the rectum this appeared normal. Scope withdrawn for the patient.
[2024-09-18] MEDS: IV FLUID CONTINUATION 1,000 ML IV ONE (12:30)
--- NOTE | 2024-09-18 14:29 | P.DS ---
Providers Date of admission: 09/14/24 22:41 Expected date of discharge: 09/18/24 Attending physician: Conner Arias Consults: 09/15/24 10:43 Consult Physician Routine Consulting Provider: Nestor Bills Consult Reason/Comments: medical management Do you want consulting provider notified?: Yes [facility] Course: Discharge diagnosis 1. Cecal bascule 2. Redundant colon Hospital course This is a 59-year-old female who presented with right lower quadrant abdominal pain. Patient reports that she has been dealing with diarrhea and constipation for the last several months. She reports early fullness after eating. She has been bloated. Reports a decreased appetite. She had a CT scan abdomen pelvis with both IV and then another CAT scan with oral contrast they reported redundant colon with twisting of the cecum correlate for cecal bascule. Appendix was normal. Patient underwent colonoscopy today that reported cecal bascule and redundant colon. At this time patient is tolerating diet. Her pain is improved. Patient to follow-up with Dr. Arias in the office. If symptoms continue to recur she will require surgical intervention. She is stable for discharge. Please refer to chart for any further details. Physician Edge Trimmer note has been reviewed by physician. Signing provider agrees with the documented findings, assessment, and plan of care. Patient Condition at Discharge: Stable Plan - Discharge Summary Discharge Rx Participant: No New Discharge Prescriptions: Continue Prednisolone Sod pH/Bromfenac [Prednisolone pH 1%-Brom 0.075%] 1 drop BOTH EYES DAILY Discharge Medication List Prednisolone Sod pH/Bromfenac [Prednisolone pH 1%-Brom 0.075%] 1 drop BOTH EYES DAILY 06/13/20 [History] Follow up Appointment(s)/Referral(s): Terrell Wing MD [Primary Care Provider] - 1-2 days Conner Arias MD [STAFF PHYSICIAN] - 1 Week Discharge Disposition: HOME SELF-CARE
--- NOTE | 2024-09-18 23:29 | P.PN ---
Subjective Progress Note Date: 09/18/24 59-year-old female came in with right lower quadrant abdominal pain severe but much improved now. Patient has been having diarrhea and constipation for last few months patient feels fullness after eating. Patient also has decreased appetite denied any nausea vomiting. Patient had a CT scan of the abdomen which showed redundant colon with twisting of the cecum possibility of cecal bascule. General surgery was consulted. Patient will undergo colonoscopy today. 09/16/2024 Patient continues to have abdominal pain patient did not tolerate opiates very well is tolerating Toradol and Tylenol very well patient has multiple side effects from opiates including constipation. Opiates were discontinued Toradol has been continued and Tylenol is being used for headache. The patient continues to have this abdominal pain will need a colectomy as per general surgery. 09/18/2024 Patient is a of medical floor. Has completed a bowel prep for colonoscopy. Reports mild abdominal discomfort. Has been passing gas. Had a headache which was treated with Tylenol and resolved. White blood cell count of 4.32, hemoglobin 11.0, sodium 142 potassium 3.9, BUN of less than 2 creatinine 0.63 blood glucose of 88. Colonoscopy reveals a cecal bascule and a redundant colon. The cecum could not be entered due to twisting of the colon and the scope was withdrawn. Patient was discharged by general surgery with recommendations to follow-up as an outpatient basis. Review of Systems Constitutional: Denied any fatigue denied any fever. Cardio vascular: denied any chest pain, palpitations Gastrointestinal: denied any nausea, vomiting, diarrhea Pulmonary: Denied any shortness of breath cough Neurologic denied any new focal deficits All inpatient medications were reviewed and appropriate changes in these me dications as dictated in the interval history and assessment and plan. PHYSICAL EXAMINATION: GENERAL: The patient is alert and oriented x3, not in any acute distress. Well developed, well nourished. HEENT: Pupils are round and equally reacting to light. EOMI. No scleral icterus. No conjunctival pallor. Normocephalic, atraumatic. No pharyngeal erythema. No thyromegaly. CARDIOVASCULAR: S1 and S2 present. No murmurs, rubs, or gallops. PULMONARY: Chest is clear to auscultation, no wheezing or crackles. ABDOMEN: Soft, nontender, nondistended, normoactive bowel sounds. No palpable organomegaly. MUSCULOSKELETAL: No joint swelling or deformity. EXTREMITIES: No cyanosis, clubbing, or pedal edema. NEUROLOGICAL: Gross neurological examination did not reveal any focal deficits. SKIN: No rashes. Assessment and plan -Right lower quadrant abdominal pain due to a redundant colon and a cecal bascule We will continue to follow the patient's no additional recommendations from medicine perspective DVT prophylaxis: As per primary service Patient was cleared for discharge home with close surgical follow-up. The impression and plan of care has been dictated by Lucinda Trimble, Nurse Practitioner as directed. Dr. Nilesh MD I have performed a history and physical examination and medical decision making of this patient, discussed the same with the dictator, and agree with the dictators assessment and plan as written, documented as a scribe. Based on total visit time, I have performed more than 50% of this visit. Objective - Vital Signs Vital signs: Vital Signs Temp 98.1 F 09/18/24 07:15 Pulse 59 L 09/18/24 07:15 Resp 17 09/18/24 07:15 BP 147/83 09/18/24 07:15 Pulse Ox 100 09/18/24 07:15 FiO2 Intake & Output 09/18/24 09/18/24 09/19/24 06:59 18:59 06:59 Intake Total 100 Balance 100 Intake: IV 100 Other: Voiding Method Toilet Toilet # Voids 2 3 # Bowel Movements 5 - Labs CBC & Chem 7: 09/18/24 08:13 09/18/24 08:10 Labs: Abnormal Lab Results - Last 24 Hours (Table) 09/18/24 09/18/24 Range/Units 08:10 08:13 WBC 4.32 L (4.50-10.00) 10*3/uL RBC 3.52 L (4.10-5.20) 10*6/uL Hgb 11.0 L (12.0-15.0) g/dL Hct 33.5 L (37.2-46.3) % Neutrophils # 1.30 L (1.80-7.70) 10*3/uL Chloride 109 H (98-107) mmol/L BUN <2 L (7-17) mg/dL Assessment and Plan Time with Patient: Less than 30
== END 2024-09-18 15:07 | disposition home or self-care (01) ==
LOC: EC 15:32 → 6NMEDSUR 22:41
PROVIDERS: ADMIT Surgery; ATTEND Surgery
DX: K56.2 Volvulus (principal); R51.9 Headache, unspecified; Q43.8 Other specified congenital malformations of intestine; Z87.891 Personal history of nicotine dependence; Z86.0100 Personal history of colon polyps, unspecified; Z88.8 Allergy status to other drugs, medicaments and biological substances; Z88.1 Allergy status to other antibiotic agents; Z88.5 Allergy status to narcotic agent
CPT/HCPCS: 96376 ×2; 96375; 96361; 96374; 99285; 36415; 80053; 80048 ×2; 83605; 83690; 85025 ×3; 81003; 74176; 74177; 45378; G0378 ×5; J2405 ×2; J1171; J1885 ×2; J2704; Q9967

== ENCOUNTER 2024-10-11 07:30 | Inpatient (IN) | payer BC ==
[~2024-10-11 07:30] MED LIST changes: -ATROPINE OPHTH SOLN 1% 5ML BTL OPHTHALMIC PRN; -BUPIVACAINE (PF) 0.5% 4.5 ML, HYALURONIDASE, HUMAN RECOMB 150 UNIT, LIDOCAINE 2% (PF) 9... IO PRN; +HEPARIN SODIUM,PORCINE 5,000 UNIT/ML 1 ML VIAL SQ PRN; -LACTATED RINGERS 1,000 ML IV SCH; -LIDOCAINE 1% (10MG/ML) FOR IV START INTRADERMA PRN; -MOXIFLOXACIN HCL 0.5% DROPS 3 ML BTL OP PRN; -TETRACAINE 0.5% OPHTH (PF) DROPS 4 ML BTL OP PRN
[2024-10-11] MEDS: ACETAMINOPHEN TAB 500 MG TAB PO PRN (10:01)
[2024-10-11] MEDS: LACTATED RINGERS 1,000 ML IV SCH (10:52)
[2024-10-11] MEDS: ONDANSETRON 4 MG/2 ML VIAL IVP ONE (10:52)
[2024-10-11] MEDS: DEXAMETHASONE SOD PHOSPHATE 4 MG/ML 1 ML VIAL IV ONE (10:52)
[2024-10-11] MEDS: IV FLUID CONTINUATION 1,000 ML IV ONE ×3 (10:55→14:39)
[2024-10-11] MEDS ORDERED: KETOROLAC 15 MG/ML 1 ML VIAL ONE (12:10)
[2024-10-11] MEDS ORDERED: DEXAMETHASONE SOD PHOSPHATE 10 MG/ML 1 ML VIAL ONE (12:10)
[2024-10-11] MEDS ORDERED: LIDOCAINE 1% INJ 10MG/ML (20 ML MDV) ONE (12:10)
[2024-10-11] MEDS ORDERED: GLYCOPYRROLATE 0.2 MG/ML 2 ML VIAL ONE (12:10)
[2024-10-11] MEDS ORDERED: NEOSTIGMINE 1 MG/ML 10 ML VIAL ONE (12:10)
[2024-10-11] MEDS ORDERED: PROPOFOL 10 MG/ML 20 ML VIAL IV ONE (12:10)
[2024-10-11] MEDS ORDERED: fentaNYL (PF) 50 MCG/ML 2 ML AMP ONE (12:10)
[2024-10-11] MEDS ORDERED: diphenhydrAMINE 50 MG/ML 1 ML VIAL ONE (12:10)
[2024-10-11] MEDS ORDERED: ROCURONIUM 10 MG/ML (5 ML VIAL) IV ONE (12:10)
[2024-10-11] MEDS ORDERED: SUCCINYLCHOLINE CHLORIDE 200 MG/10 ML VIAL IV ONE (12:10)
[2024-10-11 12:16] LABS: INR 0.9 (<1.2)
[2024-10-11 12:17] LABS: Prothrombin Time 10.4 sec (10.0-12.5)
[2024-10-11] MEDS: fentaNYL (PF) 50 MCG/ML 2 ML AMP IVP STA (12:19)
[2024-10-11] MEDS: MIDAZOLAM 2 MG/2 ML VIAL IV ONE (12:19)
[2024-10-11 12:20] LABS: Partial Thromboplastin Time 21.1 sec (22.0-30.0)
[2024-10-11] MEDS: metroNIDAZOLE-NS PMX 500 MG in SALINE 1 100ML.BAG IVPB PRN (12:20)
[2024-10-11] MEDS: BUPIVACAINE (PF) 0.25% 30 ML VIAL SQ ONE (12:53)
[2024-10-11] MEDS: LIDOCAINE 1%-EPI 1:100,000 20 ML VIAL SQ ONE (13:52)
--- NOTE | 2024-10-11 14:00 | P.OP ---
Date of Procedure: 10/11/24 Preoperative Diagnosis: Cecal bascule History of constipation Postoperative Diagnosis: Same Procedure(s) Performed: Laparoscopic right colectomy Anesthesia: MARIA DEL CARMEN Surgeon: Conner Arias Estimated Blood Loss (ml): 5 Pathology: other (Extended right colectomy) Condition: stable Disposition: PACU Operative Findings: Cecal bascule Description of Procedure: The patient was placed on the operative table in the supine position. She received general endotracheal tube anesthesia. Her abdomen was prepped and draped in usual sterile fashion. A supraumbilical skin incision was made. And then using a core clamp the fascia was grasped. The Veress needle was placed into the peritoneal cavity. Position of the Veress needle was confirmed with a positive drop test. The abdomen was insufflated. After adequate insufflation. A 5 mm optical trocar was placed under direct vision. A four-quadrant transversus abdominis plane block was performed using 1% local Xylocaine. The right colon was examined. The cecal bascule was visualized. The colon appeared to be very redundant. Next a another 5 mm trocar was placed in the left lower quadrant and another 5 mm trocar was placed in the left upper quadrant. Another 5 mm trocars placed in the left periumbilical area. The right colon was mobilized. The patient was placed in the right side up position. And then the white line of Toldt was divided. The hepatic flexure was mobilized as well. The cecum was completely mobilized and the ileum was mobilized. At this point the abdomen was desufflated. The umbilical incision was extended. And then the right colon was brought up in the extraperitoneal fashion. The omentum on the transverse colon was dissected free. And then the colon was transected at the mid transverse colon with a PARISA stapler. And then the terminal ileum was transected with a PARISA stapler. The mesentery of the bowel was then divided with the LigaSure device. A [id number] functional end-to-end stapled anastomosis then created using a PARISA and TA staplers. 3 of GI silk sutures used to crotch stitch. The bowel was placed back to the [place] cavity. The umbilical incision was closed with #1 Ethibond suture. The abdomen was then reinsufflated. Then using a Alvarado Toussaint. A laparoscopic suture pair of the umbilical site was performed using [id number] 0 Ethibond suture. The trocar was withdrawn. The skin at the incision sites were closed using 3-0 Monocryl suture. Dermabond dressings applied. Patient Toller procedure well. She was sent to recovery room in stable condition.
[2024-10-11] MEDS: HYDROmorphone 0.5 MG/0.5 ML SYRINGE IVP PRN (14:37)
[2024-10-11] MEDS: D5-0.45% NACL WITH KCL 20MEQ/L 1,000 ML IV SCH (16:01)
[2024-10-11 17:07] LABS: Basophils # (A) 0.03 10*3/uL (0.00-0.10); Basophils % (A) 0.2 %; Eosinophils # (A) 0.00 10*3/uL (0.04-0.35); Eosinophils % (A) 0.0 %; HCT 33.7 % (37.2-46.3); HGB 11.5 g/dL (12.0-15.0); Lymphocytes # (A) 0.84 10*3/uL (0.90-5.00); Lymphocytes % (A) 6.2 %; MCH 33.3 pg (27.0-32.0); MCHC 34.1 g/dL (32.0-37.0); MCV 97.7 fL (80.0-97.0); Monocytes # (A) 0.17 10*3/uL (0.20-1.00); Monocytes % (A) 1.3 %; Neutrophils # (A) 12.36 10*3/uL (1.80-7.70); Neutrophils % (A) 91.9 %; Platelet Count 264 10*3/uL (140-440); RBC 3.45 10*6/uL (4.10-5.20); RDW 13.1 % (11.5-14.5); WBC 13.45 10*3/uL (4.50-10.00)
[2024-10-11 17:18] LABS: African American GFR (CKD) >90 (>60 ml/min/1.73 sqM); Anion Gap 13 mmol/L; Blood Urea Nitrogen 11 mg/dL (7-17); Calcium 9.6 mg/dL (8.4-10.2); Carbon Dioxide 21 mmol/L (22-30); Chloride 106 mmol/L (98-107); Glucose 150 mg/dL (74-99); Non-African American GFR(CKD) >90 (>60 ml/min/1.73 sqM); Potassium 3.9 mmol/L (3.5-5.1); Sodium 140 mmol/L (137-145)
[2024-10-11] MEDS: ONDANSETRON 4 MG/2 ML VIAL IVP PRN (18:00)
[2024-10-11] MEDS: KETOROLAC 15 MG/ML 1 ML VIAL IVP PRN (21:12)
[2024-10-11] MEDS: METOCLOPRAMIDE 5 MG/ML 2 ML VIAL IVP PRN (21:13)
[2024-10-12] MEDS: diphenhydrAMINE 50 MG/ML 1 ML VIAL IVP PRN (04:25)
[2024-10-12] MEDS: HYDROmorphone 1 MG/ML 1 ML SYRINGE IVP PRN (04:25)
[2024-10-12] MEDS ORDERED: MELATONIN 5 MG TABLET PO PRN (10:41)
--- NOTE | 2024-10-12 11:52 | P.CONS ---
History of Present Illness - History of Present Illness This is a pleasant 59 years old female with past medical history of multiple medical problems Including history of constipation. She was admitted electively by surgery team for right colectomy. Today postop day #1 Patient awake alert denies chest pain or dyspnea. No vomiting abdominal pain controlled no bowel movement yet. No urinary complaint has Aguayo catheter which going to be discontinued today Patient encouraged to get out of bed and walk around if possible with staff. She denies smoking alcohol or illicit drugs. Hemodynamically stable and afebrile. WBC 13.5 hemoglobin 11.5. INR 0.9. BMP is unremarkable. Patient on D5 half-normal saline at 125 mL/h Review of Systems Review of systems CONSTITUTIONAL: No fever, no malaise, no fatigue. HEENT: No recent visual problems or hearing problems. Denied any sore throat. CARDIOVASCULAR: No orthopnea, PND, no palpitations, no syncope. PULMONARY: No shortness of breath, no cough, no hemoptysis. GASTROINTESTINAL: No diarrhea, no nausea, no vomiting, no abdominal pain. Normoactive bowel sounds. NEUROLOGICAL: No headaches, no weakness, no numbness. HEMATOLOGICAL: Denies any bleeding or petechiae. GENITOURINARY: Denies any burning micturition, frequency, or urgency. MUSCULOSKELETAL/RHEUMATOLOGICAL: Denies any joint pain, swelling, or any muscle pain. ENDOCRINE: Denies any polyuria or polydipsia. Past Medical History Past Medical History: Eye Disorder Additional Past Medical History / Comment(s): Tourettes syndrome dx age 6. CATARACTS. HX. BRONCHITIS History of Any Multi-Drug Resistant Organisms: None Reported Past Surgical History: Hernia Repair, Joint Replacement, Tonsillectomy, Tubal Ligation Additional Past Surgical History / Comment(s): wisdom teeth extraction, left eye cataract surgery. bilat. corneal transplant, rhinoplasty, cervical leep, ovarian cystectomy, hernia repair, dilatation and curettage x2. RT PERLA, KELOID INJECTIONS RT THIGH/HIP Past Anesthesia/Blood Transfusion Reactions: Postoperative Nausea & Vomiting (PONV) Additional Past Anesthesia/Blood Transfusion Reaction / Comm: Hard time waking up - ALSO MOM AND SON HAVE HARD TIME WAKING UP. HAD TO GET STERNAL RUB IN AUGUST 2022 AFTER 25 MINUTES OF TRYING TO COME OUT OF TWILIGHT SEDATION. Migraines and vomiting w/ anesthesia Past Psychological History: No Psychological Hx Reported Smoking Status: Former smoker Past Alcohol Use History: None Reported Additional Past Alcohol Use History / Comment(s): quit smoking 2020, smokes 1/2 ppweek x 20 yrs. 2 glasses wine/week Past Drug Use History: None Reported Additional Drug Use History / Comment(s): uses cbd(no thc) gummies for sleep - Past Family History Mother Family Medical History: Myocardial Infarction ([place]) Father Family Medical History: Cancer, Deep Vein Thrombosis (DVT) Additional Family Medical History / Comment(s): colon cancer Medications and Allergies Home Medications Medication Instructions Recorded Confirmed Type RX: Prednisolone Sod pH/Bromfenac 1 drop BOTH EYES DAILY 06/13/20 10/11/24 History [Prednisolone pH 1%-Brom 0.075%] Cbd Gummies 1 tab PO HS PRN 10/09/24 10/11/24 History Cholecalciferol [Vitamin D3 (25 1 tab PO DAILY 10/09/24 10/11/24 History Mcg = 1000 Iu)] Ginkgo Biloba [place] Extract [Ginkgo 40 mg PO DAILY 10/09/24 10/11/24 History Biloba] [place] 1 tab PO DAILY 10/09/24 10/11/24 History RX: Magnesium 200 mg PO DAILY 10/09/24 10/11/24 History RX: Melatonin 10 mg PO DAILY 10/09/24 10/11/24 History RX: Milk Thistle 150 mg PO DAILY 10/09/24 10/11/24 History Allergies Allergy/AdvReac Type Severity Reaction Status Date / Time azithromycin Allergy Nausea & Verified 10/11/24 10:00 Vomiting Beta-Blockers Allergy Anaphylaxis Verified 10/11/24 10:00 (Beta-Adrenergic [place]oc acetaminophen [From Vicodin] AdvReac no plain Verified 10/11/24 10:00 tylenol allergy alprazolam [From Xanax] AdvReac HEADACHE Verified 10/11/24 10:00 erythromycin base AdvReac Nausea & Verified 10/11/24 10:00 Vomiting gabapentin AdvReac NERVE Verified 10/11/24 10:00 DAMAGE hydrocodone [From Vicodin] AdvReac INSOMNIA Verified 10/11/24 10:00 hydromorphone [From Dilaudid] AdvReac Nausea & Verified 10/11/24 10:00 Vomiting, headache, itching morphine AdvReac SEVERE Verified 10/11/24 10:00 HEADACHE tetracycline AdvReac HEADACHE Verified 10/11/24 10:00 vancomycin AdvReac Itching Verified 10/11/24 10:00 Physical Exam Vitals: Vital Signs Temp Pulse Pulse Resp BP Pulse Ox 10/12/24 07:07 98.3 F 73 17 109/58 99 10/12/24 01:27 98.5 F 68 18 156/72 100 10/11/24 18:45 70 134/71 100 10/11/24 18:30 71 130/68 100 10/11/24 18:15 77 140/77 10/11/24 18:00 81 151/68 100 10/11/24 17:45 76 153/74 100 10/11/24 17:30 109 H 165/91 100 10/11/24 17:15 73 154/76 100 10/11/24 17:00 80 142/78 100 10/11/24 16:45 97.6 F 71 16 128/74 100 10/11/24 16:00 75 14 111/69 97 10/11/24 15:45 64 12 116/63 100 10/11/24 15:30 79 12 115/68 99 10/11/24 15:21 63 14 151/76 99 10/11/24 15:06 72 16 146/70 100 10/11/24 14:51 66 14 146/71 100 10/11/24 14:36 61 14 160/75 100 10/11/24 14:21 62 16 157/74 100 10/11/24 14:06 96.9 F L 70 16 164/95 100 Intake and Output 10/11/24 10/12/24 10/12/24 22:59 06:59 14:59 Output Total 2750 Balance -2750 Output: Urine 2750 Other: Voiding Method Indwelling Catheter Weight 61.5 kg GENERAL: The patient is alert and oriented x3, not in any acute distress. Well developed, well nourished. HEENT: Pupils are round and equally reacting to light. EOMI. No scleral icterus. No conjunctival pallor. Normocephalic, atraumatic. No pharyngeal erythema. No thyromegaly. CARDIOVASCULAR: S1 and S2 present. No murmurs, rubs, or gallops. PULMONARY: Chest is clear to auscultation, no wheezing , no crackles. -ABDOMEN: Soft, nontender, nondistended, normoactive bowel sounds. No palpable organomegaly. Surgical wound closed and healing with dressing in place MUSCULOSKELETAL: No joint swelling or deformity. EXTREMITIES: No cyanosis, clubbing, or pedal edema. NEUROLOGICAL: Gross neurological examination did not reveal any focal deficits. SKIN: No rashes. no petechiae. Results CBC & Chem 7: 10/11/24 16:53 10/11/24 16:53 Labs: Abnormal Lab Results - Last 24 Hours (Table) 10/11/24 10/11/24 10/11/24 Range/Units 10:45 16:53 16:53 WBC 13.45 H (4.50-10.00) 10*3/uL RBC 3.45 L (4.10-5.20) 10*6/uL Hgb 11.5 L (12.0-15.0) g/dL Hct 33.7 L (37.2-46.3) % MCV 97.7 H (80.0-97.0) fL MCH 33.3 H (27.0-32.0) pg MPV 9.3 L (9.5-12.2) fL Immature Gran # 0.05 H (0.00-0.04) 10*3/uL Neutrophils # 12.36 H (1.80-7.70) 10*3/uL Lymphocytes # 0.84 L (0.90-5.00) 10*3/uL Monocytes # 0.17 L (0.20-1.00) 10*3/uL Eosinophils # 0.00 L (0.04-0.35) 10*3/uL APTT 21.1 L (22.0-30.0) sec Carbon Dioxide 21 L (22-30) mmol/L Glucose 150 H (74-99) mg/dL Assessment and Plan Assessment: Constipation status post right colectomy Multiple drug allergies Tourettes history of bronchitis Syndrome Plan: Continue with postop care Monitor WBC and hemoglobin Out of bed to chair GI and DVT prophylaxis Resume home medication Further recommendation based on the clinical course Thank you for consulting us
[2024-10-12] MEDS: ACETAMINOPHEN TAB 325 MG TAB PO PRN (12:38)
--- NOTE | 2024-10-12 15:16 | P.PN ---
Subjective Progress Note Date: 10/12/24 The patient is postoperative day 1 from laparoscopic right colectomy. Patient is doing well. On exam vital signs appear stable. Abdomen soft. The patient will have her diet advanced once her bowel function has improved. Objective - Vital Signs Vital signs: Vital Signs Temp 98.3 F 10/12/24 07:07 Pulse 73 10/12/24 07:07 Resp 17 10/12/24 07:07 BP 109/58 10/12/24 07:07 Pulse Ox 99 10/12/24 07:07 FiO2 Intake & Output 10/11/24 10/12/24 10/12/24 18:59 06:59 18:59 Intake Total 1550 Output Total 140 2750 2300 Balance 1410 -2750 -2300 Weight 61.5 kg Intake: IV 1550 Output: Urine 135 2750 2300 Estimated Blood Loss 5 Other: Voiding Method Indwelling Catheter Indwelling Catheter - Labs CBC & Chem 7: 10/11/24 16:53 10/11/24 16:53 Labs: Abnormal Lab Results - Last 24 Hours (Table) 10/11/24 10/11/24 Range/Units 16:53 16:53 WBC 13.45 H (4.50-10.00) 10*3/uL RBC 3.45 L (4.10-5.20) 10*6/uL Hgb 11.5 L (12.0-15.0) g/dL Hct 33.7 L (37.2-46.3) % MCV 97.7 H (80.0-97.0) fL MCH 33.3 H (27.0-32.0) pg MPV 9.3 L (9.5-12.2) fL Immature Gran # 0.05 H (0.00-0.04) 10*3/uL Neutrophils # 12.36 H (1.80-7.70) 10*3/uL Lymphocytes # 0.84 L (0.90-5.00) 10*3/uL Monocytes # 0.17 L (0.20-1.00) 10*3/uL Eosinophils # 0.00 L (0.04-0.35) 10*3/uL Carbon Dioxide 21 L (22-30) mmol/L Glucose 150 H (74-99) mg/dL
--- NOTE | 2024-10-13 08:49 | P.PN ---
Subjective Progress Note Date: 10/13/24 Patient is postoperative day 2 from laparoscopic right colectomy. Patient is doing well. She has minimal plaints of pain. She has had no significant flatus. On exam vital signs appear stable. Abdomen soft. Status post laparoscopic right colectomy for cecal bascule and chronic constipation. Patient will continue receive supportive care. Anticipate discharge home over the weekend. Objective - Vital Signs Vital signs: Vital Signs Temp 99.2 F 10/13/24 01:15 Pulse 80 10/13/24 01:15 Resp 18 10/13/24 01:15 BP 126/67 10/13/24 01:15 Pulse Ox 98 10/13/24 01:15 FiO2 Intake & Output 10/12/24 10/13/24 10/13/24 18:59 06:59 18:59 Output Total 2650 Balance -2650 Output: Urine 2650 Other: Voiding Method Indwelling Catheter Toilet Toilet # Voids 4 - Labs CBC & Chem 7: 10/11/24 16:53 10/11/24 16:53
--- NOTE | 2024-10-13 10:39 | P.PN ---
Subjective This is a pleasant 59 years old female with past medical history of multiple medical problems Including history of constipation. She was admitted electively by surgery team for right colectomy. Today postop day #1 Patient awake alert denies chest pain or dyspnea. No vomiting abdominal pain controlled no bowel movement yet. No urinary complaint has Aguayo catheter which going to be discontinued today Patient encouraged to get out of bed and walk around if possible with staff. She denies smoking alcohol or illicit drugs. Hemodynamically stable and afebrile. WBC 13.5 hemoglobin 11.5. INR 0.9. BMP is unremarkable. Patient on D5 half-normal saline at 125 mL/h 10/13 Patient doing well Abdominal pain controlled No vomiting No bowel movement not passing gas No other new complaint Objective - Vital Signs Vital signs: Vital Signs Temp 98.3 F 10/13/24 07:17 Pulse 72 10/13/24 07:17 Resp 18 10/13/24 07:17 BP 130/83 10/13/24 07:17 Pulse Ox 99 10/13/24 09:59 FiO2 21 10/13/24 09:59 Intake & Output 10/12/24 10/13/24 10/13/24 18:59 06:59 18:59 Output Total 2650 Balance -2650 Output: Urine 2650 Other: Voiding Method Indwelling Catheter Toilet Toilet # Voids 4 - Exam GENERAL: The patient is alert and oriented x3, not in any acute distress. Well developed, well nourished. HEENT: Pupils are round and equally reacting to light. EOMI. No scleral icterus. No conjunctival pallor. Normocephalic, atraumatic. No pharyngeal erythema. No thyromegaly. CARDIOVASCULAR: S1 and S2 present. No murmurs, rubs, or gallops. PULMONARY: Chest is clear to auscultation, no wheezing , no crackles. -ABDOMEN: Soft, nontender, nondistended, normoactive bowel sounds. No palpable organomegaly. Surgical wound with dressing in place MUSCULOSKELETAL: No joint swelling or deformity. EXTREMITIES: No cyanosis, clubbing, or pedal edema. NEUROLOGICAL: Gross neurological examination did not reveal any focal deficits. SKIN: No rashes. no petechiae. - Labs CBC & Chem 7: 10/11/24 16:53 10/11/24 16:53 Assessment and Plan Assessment: Constipation status post right colectomy Multiple drug allergies Tourettes history of bronchitis Syndrome Plan: Continue with postop care Monitor WBC and hemoglobin Out of bed to chair GI and DVT prophylaxis Resume home medication Further recommendation based on the clinical course Thank you for consulting us
[2024-10-13] MEDS: diphenhydrAMINE 25 MG CAP PO STA (19:21)
[2024-10-14] MEDS: ACETAMINOPHEN IV (For NPO) 1,000 MG in EMPTY BAG 1 BAG IVPB PRN (02:53)
[2024-10-14] MEDS: CALCIUM CARBONATE 500 MG CHEWABLE PO PRN (10:38)
[2024-10-14] MEDS: PANTOPRAZOLE 40 MG/10 ML VIAL IVP SCH (10:38)
--- NOTE | 2024-10-14 12:39 | P.PN ---
Subjective Progress Note Date: 10/14/24 Principal diagnosis: Status post right colectomy Patient complaining of nausea this morning. Some reflux as well. Pain is about the same and relatively mild she states. Tmax 100.1. No recent labs. She did have a tiny bowel movement yesterday. No flatus yet. Feels a little bit bloated. Objective - Vital Signs Vital signs: Vital Signs Temp 98 F 10/14/24 09:10 Pulse 74 10/14/24 09:01 Resp 18 10/14/24 09:01 BP 124/75 10/14/24 09:01 Pulse Ox 98 10/14/24 09:01 FiO2 21 10/13/24 09:59 Intake & Output 10/13/24 10/14/24 10/14/24 18:59 06:59 18:59 Other: Voiding Method Toilet Toilet # Bowel Movements 1 - Exam Abdomen: Soft, mild distention, mild incisional tenderness, incision clean and dry - Labs CBC & Chem 7: 10/11/24 16:53 10/11/24 16:53 Assessment and Plan (1) Cecal volvulus Narrative/Plan: 59-year-old female status post right colectomy. Today having some nausea. Suspect ileus. Keep NPO. Check labs. Continue ambulation. Monitor for vomiting. Current Visit: Yes Status: Acute Code(s): K56.2 - VOLVULUS SNOMED Code(s): 893898536
[2024-10-14 13:05] LABS: Basophils # (A) 0.04 10*3/uL (0.00-0.10); Basophils % (A) 0.3 %; Eosinophils # (A) 0.07 10*3/uL (0.04-0.35); Eosinophils % (A) 0.6 %; HCT 38.6 % (37.2-46.3); HGB 13.1 g/dL (12.0-15.0); Lymphocytes # (A) 1.88 10*3/uL (0.90-5.00); Lymphocytes % (A) 15.2 %; MCH 31.0 pg (27.0-32.0); MCHC 33.9 g/dL (32.0-37.0); Monocytes # (A) 0.91 10*3/uL (0.20-1.00); Monocytes % (A) 7.4 %; Neutrophils # (A) 9.43 10*3/uL (1.80-7.70); Neutrophils % (A) 76.1 %; Platelet Count 309 10*3/uL (140-440); RBC 4.22 10*6/uL (4.10-5.20); RDW 12.5 % (11.5-14.5); WBC 12.38 10*3/uL (4.50-10.00)
[2024-10-14 13:11] LABS: MCV 91.5 fL (80.0-97.0)
[2024-10-14 13:31] LABS: ALT 13 U/L (4-34); AST 18 U/L (14-36); African American GFR (CKD) >90 (>60 ml/min/1.73 sqM); Albumin 3.9 g/dL (3.5-5.0); Albumin/Globulin Ratio 1.7; Alkaline Phosphatase 65 U/L (38-126); Anion Gap 11 mmol/L; Blood Urea Nitrogen 7 mg/dL (7-17); Calcium 9.8 mg/dL (8.4-10.2); Carbon Dioxide 23 mmol/L (22-30); Chloride 102 mmol/L (98-107); Globulin 2.3 g/dL; Glucose 127 mg/dL (74-99); Non-African American GFR(CKD) >90 (>60 ml/min/1.73 sqM); Potassium 4.5 mmol/L (3.5-5.1); Sodium 136 mmol/L (137-145); Total Protein 6.2 g/dL (6.3-8.2)
--- NOTE | 2024-10-14 17:14 | P.PN ---
Subjective This is a pleasant 59 years old female with past medical history of multiple medical problems Including history of constipation. She was admitted electively by surgery team for right colectomy. Today postop day #1 Patient awake alert denies chest pain or dyspnea. No vomiting abdominal pain controlled no bowel movement yet. No urinary complaint has Aguayo catheter which going to be discontinued today Patient encouraged to get out of bed and walk around if possible with staff. She denies smoking alcohol or illicit drugs. Hemodynamically stable and afebrile. WBC 13.5 hemoglobin 11.5. INR 0.9. BMP is unremarkable. Patient on D5 half-normal saline at 125 mL/h 10/13 Patient doing well Abdominal pain controlled No vomiting No bowel movement not passing gas No other new complaint 10/14 Patient did not feel well little bit today she has some nausea but no vomiting Some heartburn. Had little bowel movement She ate 90% of her dinner last night. Patient does not feel she is ready to go home today Objective - Vital Signs Vital signs: Vital Signs Temp 98 F 10/14/24 09:10 Pulse 74 10/14/24 09:01 Resp 18 10/14/24 09:01 BP 124/75 10/14/24 09:01 Pulse Ox 98 10/14/24 09:01 FiO2 21 10/13/24 09:59 Intake & Output 10/13/24 10/14/24 10/14/24 18:59 06:59 18:59 Other: Voiding Method Toilet Toilet # Bowel Movements 1 - Exam GENERAL: The patient is alert and oriented x3, not in any acute distress. Well developed, well nourished. HEENT: Pupils are round and equally reacting to light. EOMI. No scleral icterus. No conjunctival pallor. Normocephalic, atraumatic. No pharyngeal erythema. No t hyromegaly. CARDIOVASCULAR: S1 and S2 present. No murmurs, rubs, or gallops. PULMONARY: Chest is clear to auscultation, no wheezing , no crackles. -ABDOMEN: Soft, nontender, nondistended, normoactive bowel sounds. No palpable organomegaly. Surgical wound with dressing in place. 3 puncture wounds from laparoscopic evaluation of the skin are healing. MUSCULOSKELETAL: No joint swelling or deformity. EXTREMITIES: No cyanosis, clubbing, or pedal edema. NEUROLOGICAL: Gross neurological examination did not reveal any focal deficits. SKIN: No rashes. no petechiae. - Labs CBC & Chem 7: 10/14/24 12:52 10/14/24 12:52 Assessment and Plan Assessment: Constipation status post right colectomy Low-grade fever. Postop fever most likely the cause Multiple drug allergies Tourettes history of bronchitis Syndrome Plan: Continue with postop care Most likely fever is due to post operative effect. Check chest x-ray and urinalysis as patient has some nonspecific symptoms Monitor WBC and hemoglobin Out of bed to chair GI and DVT prophylaxis Resume home medication Further recommendation based on the clinical course Thank you for consulting us
--- NOTE | 2024-10-14 17:46 | XR ---
EXAMINATION TYPE: XR chest 1V DATE OF EXAM: 10/14/2024 5:30 PM COMPARISON: None TECHNIQUE: XR chest 1V Portable AP radiograph of the chest. CLINICAL INDICATION:Female, 59 years old with history of fever; FINDINGS: Lungs/Pleura: There is no evidence of pleural effusion, focal consolidation, or pneumothorax. Pulmonary vascularity: Unremarkable. Heart/mediastinum: Cardiomediastinal silhouette is unremarkable. Musculoskeletal: No acute osseous pathology. Remote appearing fractures of the right second and third ribs. IMPRESSION: No acute cardiopulmonary disease/process. [facility], , 10/14/2024 5:43 PM
[2024-10-14 20:08] LABS: Bilirubin,Urine Negative (Negative); Blood,Urine Negative (Negative); Color,Urine Colorless; Glucose,Urine (UA) Negative (Negative); Ketones,Urine Negative (Negative); Leukocyte Esterase,Urine Negative (Negative); Nitrite,Urine Negative (Negative); PH, Urine 6.0 (5.0-8.0); Protein,Urine Negative (Negative); Specific Gravity,Urine 1.010 (1.001-1.035); Urobilinogen,Urine <2.0 mg/dL (<2.0)
[2024-10-15 10:02] LABS: Anion Gap 12.50 mmol/L (4.00-12.00); BUN/Creat Ratio 10.57 Ratio (12.00-20.00); Blood Urea Nitrogen 7.4 mg/dL (9.0-27.0); Calcium 9.8 mg/dL (8.7-10.3); Carbon Dioxide 21.5 mmol/L (21.6-31.8); Chloride 102 mmol/L (96-109); Glucose 148 mg/dL (70-110); Potassium 4.7 mmol/L (3.5-5.5); Sodium 136 mmol/L (135-145)
--- NOTE | 2024-10-15 10:19 | P.PN ---
Subjective Progress Note Date: 10/15/24 Principal diagnosis: Status post right colectomy Patient had an episode of vomiting 4 times this morning. Says yesterday she felt uncomfortable with nausea. She did have a chest x-ray and at least on the upper abdominal aspect of the x-ray there is no significant bowel dilation present. White blood cell count 12 yesterday. CBC today pending. Patient is hungry and asking if she can go home today. She has had multiple loose stools since yesterday. Objective - Vital Signs Vital signs: Vital Signs Temp 99.1 F 10/15/24 08:25 Pulse 91 10/15/24 08:25 Resp 18 10/15/24 08:25 BP 126/77 10/15/24 08:25 Pulse Ox 97 10/15/24 08:25 FiO2 21 10/13/24 09:59 Intake & Output 10/14/24 10/15/24 10/15/24 18:59 06:59 18:59 Intake Total 900 Balance 900 Intake: Intake, IV Titration 900 Amount D5-0.45% NaCl with KCl 900 20Meq/l 1,000 ml @ 75 mls /hr IV .[id number] [facility] Rx#: [id number] Other: # Voids 2 6 # Bowel Movements 0 6 - Exam Abdomen: Soft, mild tenderness, incision clean and dry, no appreciable distention - Labs CBC & Chem 7: 10/14/24 12:52 10/15/24 02:54 Labs: Abnormal Lab Results - Last 24 Hours (Table) 10/14/24 10/14/24 10/15/24 Range/Units 12:52 12:52 02:54 WBC 12.38 H (4.50-10.00) 10*3/uL MPV 9.4 L (9.5-12.2) fL Immature Gran # 0.05 H (0.00-0.04) 10*3/uL Neutrophils # 9.43 H (1.80-7.70) 10*3/uL Sodium 136 L (137-145) mmol/L Carbon Dioxide 21.5 L (21.6-31.8) mmol/L Anion Gap 12.50 H (4.00-12.00) mmol/L BUN 7.4 L (9.0-27.0) mg/dL BUN/Creatinine Ratio 10.57 L (12.00-20.00) Ratio Glucose 127 H 148 H (74-99) mg/dL Total Protein 6.2 L (6.3-8.2) g/dL Assessment and Plan (1) Cecal volvulus Narrative/Plan: Patient seems a bit improved today. Begin clear liquids. Monitor for recurrent nausea or vomiting. Continue ambulation. Encouraged patient it is best to stay at least until tomorrow to see that her bowels are functioning properly. Patient is agreeable. Current Visit: Yes Status: Acute Code(s): K56.2 - VOLVULUS SNOMED Code(s): 564521424
[2024-10-15 12:13] LABS: Basophils # (A) 0.02 X 10*3/uL (0.00-0.10); Basophils % (A) 0.2 %; Eosinophils # (A) 0.08 X 10*3/uL (0.04-0.35); Eosinophils % (A) 0.7 %; HCT 40.2 % (37.2-46.3); HGB 13.1 g/dL (12.0-15.0); Immature Grans, Automated 0.30 %; Lymphocytes # (A) 2.50 X 10*3/uL (0.90-5.00); Lymphocytes % (A) 21.9 %; MCH 30.8 pg (27.0-32.0); MCHC 32.6 g/dL (32.0-37.0); MCV 94.6 FL (80.0-97.0); Monocytes # (A) 0.95 X 10*3/uL (0.20-1.00); Monocytes % (A) 8.3 %; NRBC Per 100 WBC 0 X 10*3/uL (0.00-0.01); Neutrophils # (A) 7.82 X 10*3/uL (1.80-7.70); Neutrophils % (A) 68.6 %; Platelet Count 308 X 10*3/uL (140-440); RBC 4.25 X 10*6/uL (4.10-5.20); RDW 13.1 % (11.5-14.5); WBC 11.40 X 10*3/uL (4.50-10.00)
[2024-10-15] MEDS ORDERED: ACETAMINOPHEN TAB 325 MG TAB PO PRN (20:57)
[2024-10-15] MEDS: ACETAMINOPHEN TAB 325 MG TAB PO STA (21:06)
[2024-10-16 08:50] VITALS: BP 144/80; PULSE 75; RESP 16; TEMP 98.1
--- NOTE | 2024-10-16 10:45 | P.DS ---
Providers Date of admission: 10/11/24 08:37 Expected date of discharge: 10/16/24 Attending physician: Conner Arias Consults: 10/11/24 14:00 Consult Physician Routine Consulting Provider: Elaina Galloway Consult Reason/Comments: Medical management Do you want consulting provider notified?: Yes Primary care physician: Stated None Hospital Course: Discharge diagnosis 1. Cecal bascule 2. History of constipation Hospital course This is a 59-year-old female with a known cecal bascule and history of constipation. She is status post laparoscopic right colectomy. Patient tolerated surgery well. Pain is controlled. She is tolerating diet. She has been up and ambulating. She is having bowel movements. She is afebrile. She is stable for discharge. Please refer to chart for further details. Physician Food Service Tray Attendant note has been reviewed by physician. Signing provider agrees with the documented findings, assessment, and plan of care. Patient Condition at Discharge: Stable Plan - Discharge Summary Discharge Rx Participant: Yes New Discharge Prescriptions: New HYDROcodone/APAP 5-325MG [[place] 5-325] 1 tab PO Q6HR PRN #10 tab PRN Reason: Pain Acetaminophen Tab [Tylenol Tab] 650 mg PO Q4H PRN #30 tablet PRN Reason: Pain Continue Prednisolone Sod pH/Bromfenac [Prednisolone pH 1%-Brom 0.075%] 1 drop BOTH EYES DAILY Milk Thistle 150 mg PO DAILY Magnesium 200 mg PO DAILY Cholecalciferol [Vitamin D3 (25 Mcg = 1000 Iu)] 1 tab PO DAILY [place] 1 tab PO DAILY Cbd Gummies 1 tab PO HS PRN PRN Reason: Insomnia Melatonin 10 mg PO DAILY Ginkgo Biloba [place] Extract [Ginkgo Biloba] 40 mg PO DAILY Discharge Medication List Prednisolone Sod pH/Bromfenac [Prednisolone pH 1%-Brom 0.075%] 1 drop BOTH EYES DAILY 06/13/20 [History] Cbd Gummies 1 tab PO HS PRN 10/09/24 [History] Cholecalciferol [Vitamin D3 (25 Mcg = 1000 Iu)] 1 tab PO DAILY 10/09/24 [History] Ginkgo Biloba [place] Extract [Ginkgo Biloba] 40 mg PO DAILY 10/09/24 [History] Magnesium 200 mg PO DAILY 10/09/24 [History] Melatonin 10 mg PO DAILY 10/09/24 [History] Milk Thistle 150 mg PO DAILY 10/09/24 [History] [place] 1 tab PO DAILY 10/09/24 [History] HYDROcodone/APAP 5-325MG [[place] 5-325] 1 tab PO Q6HR PRN #10 tab 10/13/24 [Rx] Acetaminophen Tab [Tylenol Tab] 650 mg PO Q4H PRN #30 tablet 10/16/24 [Rx] Follow up Appointment(s)/Referral(s): Conner Arias MD [STAFF PHYSICIAN] - 1 Week Activity/Diet/Wound Care/Special Instructions: No driving while taking [place] No lifting over 10 pounds Shower daily. No soaking or tub baths for 2 weeks Very light activity until you are reevaluated at your follow up appointment with your surgeon Advance diet as tolerated at home Discharge/Stand Alone Forms: Area PCPs Discharge Disposition: HOME SELF-CARE
--- NOTE | 2024-10-16 12:13 | P.PN ---
Subjective This is a pleasant 59 years old female with past medical history of multiple medical problems Including history of constipation. She was admitted electively by surgery team for right colectomy. Today postop day #1 Patient awake alert denies chest pain or dyspnea. No vomiting abdominal pain controlled no bowel movement yet. No urinary complaint has Aguayo catheter which going to be discontinued today Patient encouraged to get out of bed and walk around if possible with staff. She denies smoking alcohol or illicit drugs. Hemodynamically stable and afebrile. WBC 13.5 hemoglobin 11.5. INR 0.9. BMP is unremarkable. Patient on D5 half-normal saline at 125 mL/h 10/13 Patient doing well Abdominal pain controlled No vomiting No bowel movement not passing gas No other new complaint 10/14 Patient did not feel well little bit today she has some nausea but no vomiting Some heartburn. Had little bowel movement She ate 90% of her dinner last night. Patient does not feel she is ready to go home today 10/15 Patient tolerates diet well. But she vomited once She has some frequent bowel movement no overt diarrhea no abdominal pain or tenderness to include soft No more fever workup was unremarkable most likely is postoperative fever from surgery. No need for antibiotics per facility maintenance manager no evidence of infection but keep monitoring Patient preferred to go home so but agrees to stay Leukocytosis improving urinalysis and chest were negative Objective - Vital Signs Vital signs: Vital Signs Temp 99.1 F 10/15/24 08:25 Pulse 91 10/15/24 08:25 Resp 18 10/15/24 08:25 BP 126/77 10/15/24 08:25 Pulse Ox 97 10/15/24 08:25 FiO2 21 10/13/24 09:59 Intake & Output 10/14/24 10/15/24 10/15/24 18:59 06:59 18:59 Intake Total 900 Balance 900 Intake: Intake, IV Titration 900 Amount D5-0.45% NaCl with KCl 900 20Meq/l 1,000 ml @ 75 mls /hr IV .[id number] [facility] Rx#: [id number] Other: # Voids 2 6 # Bowel Movements 0 6 - Exam GENERAL: The patient is alert and oriented x3, not in any acute distress. Well developed, well nourished. HEENT: Pupils are round and equally reacting to light. EOMI. No scleral icterus. No conjunctival pallor. Normocephalic, atraumatic. No pharyngeal erythema. No thyromegaly. CARDIOVASCULAR: S1 and S2 present. No murmurs, rubs, or gallops. PULMONARY: Chest is clear to auscultation, no wheezing , no crackles. -ABDOMEN: Soft, nontender, nondistended, normoactive bowel sounds. No palpable organomegaly. Surgical wound with dressing in place. 3 puncture wounds from laparoscopic evaluation of the skin are healing. MUSCULOSKELETAL: No joint swelling or deformity. EXTREMITIES: No cyanosis, clubbing, or pedal edema. NEUROLOGICAL: Gross neurological examination did not reveal any focal deficits. SKIN: No rashes. no petechiae. - Labs CBC & Chem 7: 10/15/24 02:54 10/15/24 02:54 Labs: Abnormal Lab Results - Last 24 Hours (Table) 10/14/24 10/14/24 10/15/24 Range/Units 12:52 12:52 02:54 WBC 12.38 H 11.40 H (4.50-10.00) 10*3/uL MPV 9.4 L (9.5-12.2) fL Immature Gran # 0.05 H (0.00-0.04) 10*3/uL Neutrophils # 9.43 H 7.82 H (1.80-7.70) 10*3/uL Sodium 136 L (137-145) mmol/L Carbon Dioxide (21.6-31.8) mmol/L Anion Gap (4.00-12.00) mmol/L BUN (9.0-27.0) mg/dL BUN/Creatinine Ratio (12.00-20.00) Ratio Glucose 127 H (74-99) mg/dL Total Protein 6.2 L (6.3-8.2) g/dL 10/15/24 Range/Units 02:54 WBC (4.50-10.00) 10*3/uL MPV (9.5-12.2) fL Immature Gran # (0.00-0.04) 10*3/uL Neutrophils # (1.80-7.70) 10*3/uL Sodium (137-145) mmol/L Carbon Dioxide 21.5 L (21.6-31.8) mmol/L Anion Gap 12.50 H (4.00-12.00) mmol/L BUN 7.4 L (9.0-27.0) mg/dL BUN/Creatinine Ratio 10.57 L (12.00-20.00) Ratio Glucose 148 H (74-99) mg/dL Total Protein (6.3-8.2) g/dL Assessment and Plan Assessment: Constipation status post right colectomy Low-grade fever. Postop fever most likely the cause Multiple drug allergies Tourettes history of bronchitis Syndrome Plan: Continue with postop care Most likely fever is due to post operative effect. Check chest x-ray and urinalysis as patient has some nonspecific symptoms Monitor WBC and hemoglobin Out of bed to chair GI and DVT prophylaxis Resume home medication Further recommendation based on the clinical course Thank you for consulting us
== END 2024-10-16 12:31 | disposition home or self-care (01) | DRG 331 ==
LOC: 2ORMAIN 08:37 → 4SSUR 15:02
PROVIDERS: ADMIT Surgery; ATTEND Surgery
PROC: 0DTF4ZZ Resection of Right Large Intestine, Percutaneous Endoscopic Approach (ICD-10-PCS; principal; 2024-10-11 10:30)
DX: K56.2 Volvulus (principal); F95.2 Tourette's disorder; R50.82 Postprocedural fever; Z96.641 Presence of right artificial hip joint; Z98.51 Tubal ligation status; Z87.891 Personal history of nicotine dependence; Z88.1 Allergy status to other antibiotic agents; Z88.5 Allergy status to narcotic agent; Z88.8 Allergy status to other drugs, medicaments and biological substances; Z80.0 Family history of malignant neoplasm of digestive organs
CPT/HCPCS: 71045; 80048; 80053; 81003; 85025; 85610; 85730; 86850; 86900; 86901; 88307; 94760